=== PATIENT | male | born 1940 | race Caucasian/White ===

== ENCOUNTER 2019-07-19 11:22 | Outpatient (CLI) | payer BC, SELFPAY ==
[2019-07-19 11:38] LABS: Basophils Absolute Auto 0.1 K/mm3 (0.0-0.1); Eosinophils Absolute Auto 0.4 K/mm3 (0-0.3); Eosinophils Percent Auto 5.4 % (0-4.4); Hematocrit 37.8 % (42.0-52.0); Hemoglobin 12.4 g/dL (14.0-18.0); Immature Granulocyte Absolute 0.01 K/mm3 (0.00-0.031); Immature Granulocyte Percent A 0.1 % (0-0.5); Lymphocytes Absolute Auto 1.96 K/mm3 (0.9-3.2); Lymphocytes Percent Auto 27.9 % (18.3-44.2); Mean Corpuscular HGB Conc 32.8 g/dl (32-36); Mean Corpuscular Volume 94.5 fl (80-100); Mean Platelet Volume 8.8 fl (7.4-10.4); Monocytes Absolute Auto 0.9 K/mm3 (0.1-0.6); Monocytes Percent Auto 12.1 % (2.6-8.5); Neutrophils Absolute Auto 3.8 K/mm3 (1.3-6.7); Neutrophils Percent Auto 53.5 % (45.5-73.1); Platelet Count Result 217 k/mm3 (150-375); Red Cell Distribution Width 13.2 % (11.5-14.5)
[2019-07-19 11:50] LABS: Alanine Aminotransferase 20 U/L (4-50); Alkaline Phosphatase 70 U/L (38-126); Aspartate Amino Transferase 34 U/L (17-59); Bilirubin,Total 0.7 mg/dL (0.2-1.3); Blood Urea Nitrogen 17 mg/dL (9-20); Calcium 9.5 mg/dL (8.4-10.2); Carbon Dioxide 30 mmol/L (22-30); Chloride 102 mmol/L (98-107); Cholesterol 141 mg/dL (0-200); Estimated Glomerular Filt Rate > 60; Glucose 103 mg/dL (75-110); HDL Direct 65 mg/dL; Sodium 136 mmol/L (137-145); Triglycerides 96 mg/dL (<150)
[2019-07-19 12:01] LABS: LDL Cholesterol Direct 65 mg/dL
== END 2019-07-19 11:23 | disposition home or self-care (01) ==
PROVIDERS: PCP Internal Medicine; Visit Provider Internal Medicine
DX: Z13.228 Encounter for screening for other metabolic disorders (principal); Z13.220 Encounter for screening for lipoid disorders
CPT/HCPCS: 36415; 80053; 80061; 85025

== ENCOUNTER 2020-07-25 09:45 | Outpatient (CLI) | payer BC, SELFPAY | END 2020-07-25 09:46 | disposition home or self-care (01) | LOC: ANHCOVIDVC 09:45 | PROVIDERS: PCP Internal Medicine | DX: Z23 Encounter for immunization (principal) | CPT/HCPCS: 0001A; 91300 ==

== ENCOUNTER 2020-08-15 09:44 | Outpatient (CLI) | payer BC, SELFPAY | END 2020-08-15 09:45 | disposition home or self-care (01) | LOC: ANHCOVIDVC 09:44 | PROVIDERS: PCP Internal Medicine | DX: Z23 Encounter for immunization (principal) | CPT/HCPCS: 0002A; 91300 ==

== ENCOUNTER 2021-03-26 14:08 | Observation (INO) | payer BC, SELFPAY ==
[2021-03-26] VITALS (10 sets, daily range): BP systolic 122–148; BP diastolic 72–94; PULSE 84–104; RESP 18–20; TEMP 36–36.9; O2SAT 96–97; BMI 29.2
--- NOTE | ~2021-03-26 | CT_ITS ---
EXAMINATION: CT brain wo con DATE: 03/26/2021 15:25 INDICATION: Left lower extremity weakness. TECHNIQUE: Computed tomography (CT) of the head was performed without intravenous contrast. The dose- length product was 605.33 mGy-cm. COMPARISON: None FINDINGS: No acute intracranial hemorrhage, infarction, mass or mass effect. Mild generalized atrophy . There are scattered mild periventricular and subcortical white matter changes, most likely related to small vessel ischemic disease (microangiopathy). There is mucosal thickening of the maxillary and ethmoid sinuses with mucoperiosteal reaction, consistent with chronic sinus disease. IMPRESSION: 1. No acute intracranial abnormality. 2: Chronic sinus disease. 3: Chronic age-related findings. Reviewed, dictated and finalized at location A. EXPERT
--- NOTE | ~2021-03-26 | MR_ITS ---
EXAMINATION: MR cervical spine wo/w con EXAM DATE: 03/27/2021 14:58 INDICATION: Seen by Dr. Quintero, Babinski sign is positive. TECHNIQUE: Multi-sequential, multiplanar MR images of the cervical spine were obtained without contra st. Axial T2, axial T2 MERGE sequence. Sagittal T1, T2, T2 fat saturation images also obtained. Axi al T1 weighted sequence. Patient was then injected with 17 mL Multihance intravenous contrast and re imaged. Postcontrast axial and sagittal T1-weighted fat saturation sequences were obtained. Compari son is made to prior examination from 07/21/2017. FINDINGS: There is 3 mm anterolisthesis C4 on C5, disc bulge and posterior ligamentum flavum hypertr ophy contributing to mild to moderate central canal stenosis, central canal narrowed to about 6 mm, a nd distorting the spinal cord. Slightly increased T2 signal intensity is again present, however there may be slight expansion of the cord posterior to C4 which could indicate some component of edema in addition to chronic myelomalacia. There is 2 mm anterolisthesis C5 on C6, C6 on C7, 3 mm anterolisthesis C7 on T1 and 2 mm anterolisthe sis of T1 on T2. Cervicomedullary junction is normal in appearance. Moderate to severe cervical disc disease. There are no areas of abnormal enhancement on the post contrast images. Level by level evaluation: C2-C3: There is a mild diffuse disc bulge. Uncovertebral joint arthropathy: Mild left. Facet joint arthropathy: Moderate to severe bilateral. Neural foraminal stenosis: Mild to moderate left. Central canal stenosis: No stenosis. C3-C4: There is mild disc osteophyte complex asymmetric to the left Uncovertebral joint arthropathy: Moderate left, mild right. Facet joint arthropathy: Severe bilateral. Neural foraminal stenosis: Severe left, moderate right. Central canal stenosis: Mild. C4-C5: There is a mild diffuse disc bulge. Uncovertebral joint arthropathy: Moderate left, mild to moderate right. Facet joint arthropathy: Severe bilateral . Ligamentum flavum enlargement . Neural foraminal stenosis: Severe left, moderate right. Central canal stenosis: Mild mild to moderate . Central canal measures 6 mm in mid sagittal AP diameter . C5-C6: There is a mild diffuse disc bulge. Uncovertebral joint arthropathy: Moderate bilateral. Facet joint arthropathy: Severe right, moderate to severe left. Neural foraminal stenosis: Mild to moderate right, mild left. Central canal stenosis: No stenosis. C6-C7: Disc does not extend beyond the endplate margin. Uncovertebral joint arthropathy: Moderate bilateral. Facet joint arthropathy: Moderate bilateral. Neural foraminal stenosis: No stenosis. Central canal stenosis: No stenosis. C7-T1: There is a mild diffuse disc bulge. Uncovertebral joint arthropathy: Moderate bilateral. Facet joint arthropathy: Moderate to severe bilateral. Neural foraminal stenosis: Moderate bilateral. Central canal stenosis: Mild. Compared to 2018, slight progression in the advanced cervical spondylosis detailed above. Additionall y, the spinal cord appears slightly expanded at the C4 level which could indicate some edema, potenti ally treatable with steroids. IMPRESSION: 1. Advanced cervical spondylosis with mild interval progression. 2. Cord compression on C4-5, amount of compression appears unchanged but slight expansion could obi cathy some edema not present on prior study. Consider surgical consult an/or steroid trial. Reviewed, dictated and finalized at location A. RAL OFFICE TROUBLE SHOOTER IMPRESSION: 1. Advanced cervical spondylosis with mild interval progression. 2. Cord compression on C4-5, amount of compression appears unchanged but sligh t expansion could indicate
--- NOTE | ~2021-03-26 | XR_ITS ---
EXAMINATION: XR chest 1V portable EXAM DATE: 03/26/2021 18:58 INDICATION: Weakness. Fell last night. TECHNIQUE: Portable AP frontal chest x-ray was obtained. There is no prior study for comparison. FINDINGS: The lungs are clear. There are no pleural effusions. Cardiac silhouette is prominent but magnified on this AP technique. There is no pneumothorax suspected. The bones and soft tissues are unremarkable. IMPRESSION: No acute cardiopulmonary findings. Reviewed, dictated and finalized at location A. INE LACER
--- NOTE | ~2021-03-26 | US_ITS ---
EXAMINATION: US carotid duplex BI DATE: 03/27/2021 13:35 INDICATION: Generalized weakness, difficulty walking TECHNIQUE: Grayscale, color Doppler, and pulsed Doppler images of the cervical carotid arteries were obtained. The degree of vessel stenosis is placed in one of the following categories: normal, <50%, 5 0-69%, >=70% but less than near-occlusion, near-occlusion, or total occlusion. Note that percent sten osis relative to normal distal artery lumen diameter is indirectly measured from velocity measurement s as described by Lenin, et al. Radiology 2003; 229:340-346. COMPARISON: None. FINDINGS: RIGHT: The right common carotid artery (CCA) peak systolic velocity (PSV) is 51.7 cm/s. The right internal c arotid artery (ICA) PSV is 50.3 cm/s. The right ICA end-diastolic velocity (EDV) is 19.0 cm/s. The ri t ICA/CCA PSV ratio is 1.0. Grayscale and color Doppler images yield an estimate of less than 50% d iameter reduction from plaque in the ICA. The external carotid artery (ECA) PSV is 66.0 cm/s. There i s antegrade flow in the right vertebral artery. LEFT: The left CCA PSV is 60.7 cm/s. The left ICA PSV is 45.1 cm/s. The left ICA EDV is 17.7 cm/s. The left ICA/CCA PSV ratio is 0.7. Grayscale and color Doppler images yield an estimate of less than 50% diam eter reduction from plaque in the ICA. The ECA PSV is 55.5 cm/s. There is antegrade flow in the left vertebral artery. IMPRESSION: 1. <50% stenosis in the right internal carotid artery. 2. <50% stenosis in the left internal carotid artery. Reviewed, dictated and finalized at location B. [employer]EARCH [employer] DEVELOPMENT
--- NOTE | ~2021-03-26 | XR_ITS ---
EXAMINATION: XR wrist RT min 3V EXAM DATE: 03/26/2021 17:28 INDICATION: Fall Last Night Arthritis In Wrists, Pain More Lateral Sides . TECHNIQUE: Right wrist frontal, frontal with ulnar deviation, oblique and lateral projections obtain ed and reviewed. There is no prior study for comparison. FINDINGS: Similar appearance to the contralateral side with severe scaphoid settling into the radius, advanced osteoarthritis. Osteopenia limiting sensitivity but no acute fracture identified. Chondroca lcinosis. IMPRESSION: Chronic right wrist findings Reviewed, dictated and finalized at location A. CONTROL CLERK
--- NOTE | ~2021-03-26 | US_ITS ---
EXAMINATION:US venous doppler LE BI INDICATION:Lymphedema TECHNIQUE: Multiple grayscale, color flow and Doppler images of the right and left lower extremity de ep venous systems were obtained and reviewed. COMPARISON:No prior studies for comparison. FINDINGS: The common femoral, superficial femoral and popliteal veins demonstrate normal respiratory variation, augmentation and compressibility. Color flow is also seen within the posterior tibial, pe roneal, greater saphenous and profunda veins. IMPRESSION: 1: No lower extremity deep venous thrombosis. Reviewed, dictated and finalized at location A.
--- NOTE | ~2021-03-26 | XR_ITS ---
EXAMINATION: XR wrist LT min 3V EXAM DATE: 03/26/2021 17:26 INDICATION: Fall Last Night Arthritis In Both Wrists, Left Is Worse TECHNIQUE: Left wrist frontal, frontal with ulnar deviation, oblique and lateral projections obtained and reviewed. There is no prior study for comparison. FINDINGS: Bones are osteopenic. Please note that osteopenia limits sensitivity for detecting fractur es by radiographs. There are no left wrist acute fractures identified. There are severe radiocarpal osteoarthritis with scaphoid settled into the distal aspect of the radius. There is chondral cartilag e calcification. Severe 1st carpometacarpal joint osteoarthritis. IMPRESSION: 1. Osteopenia limiting sensitivity but no acute left wrist fracture identified. 2. Advanced osteoarthritis. 3. Chondrocalcinosis. Reviewed, dictated and finalized at location A. TUBE WINDER IMPRESSION: 1. Osteopenia limiting sensitivity but no acute left wrist fracture identified . 2. Advanced osteoarthritis. 3. Chondrocalcinosis.
--- NOTE | ~2021-03-26 | MR_ITS ---
EXAMINATION: MR brain/brain stem wo/w con DATE: 03/27/2021 13:00 INDICATION: Ataxia. Leg weakness. TECHNIQUE: Magnetic resonance imaging (MRI) of the brain and brainstem was performed without and with 17 mL MultiHance intravenous contrast. Sequences included sagittal and axial T1-weighted FSE, axial diffusion-weighted FS EPI, axial T2*-weighted GRE, axial T2-weighted FLAIR Propeller, and axial T2-we ighted Propeller. Postcontrast sequences included axial and coronal T1-weighted FSE. Apparent diffusi on coefficient (ADC) maps were created. COMPARISON: Cervical spine MRI 07/21/2017 FINDINGS: There are scattered areas of nonspecific increased T2-weighted signal intensity in the cere bral white matter, which is within normal limits for the patient's age. There is no intracranial hemo rrhage, acute infarction, or abnormal intracranial mass lesion. The ventricles are normal in size. Th e mastoid air cells are normal. There are likely changes of ocular lens replacement surgeries. There is severe cervical spondylosis. IMPRESSION: 1. Normal aging brain. Reviewed, dictated and finalized at location A. UNTS RECEIVABLE EXECUTIVE IMPRESSION: 1. Normal aging brain.
--- NOTE | ~2021-03-26 | MR_ITS ---
EXAMINATION: MR thoracic spine wo/w con EXAM DATE: 03/27/2021 14:59 INDICATION: Seen by Dr. Quintero, positive babinski sign. TECHNIQUE: Multi-sequential, multiplanar MR images of the thoracic spine were obtained without contra st. Sagittal T1, T2, T2 fat saturation, axial T2 weighted images reviewed. Axial T1 weighted sequenc e. Patient was then injected with 17 mL Multihance intravenous contrast and reimaged. Postcontrast axial and sagittal T1-weighted fat saturation sequences were obtained. There are no prior studies for comparison. FINDINGS: There is severe spondylosis from T10 through L2. The T11-L1 vertebral bodies are fused. The re is large hemangioma within the T11 vertebral body. Moderate disc disease at T1-2 and T9-10, mild a t the other thoracic levels. There is 2 mm anterolisthesis of T10 on T11, 3 mm anterolisthesis T11 on T12, 3 mm retrolisthesis L1 on L2 with advanced disc disease at that level. There is moderate thorac olumbar dextroscoliosis appears to be centered at the T12-L1 level. Thoracic cord signal is normal, a lthough cord is being distorted, has flattened appearance without significant central canal stenosis at C7-T1 and T1-2 levels. The thoracic central canal is narrowed at the lower thoracic levels with m ass effect on the cord, will be described below. There is overall moderate upper thoracic, mild mid t horacic, severe lower thoracic facet arthropathy. There is thoracic aortic tortuosity and ectasia up to 3.8 cm just beyond the aortic arch. There are no areas of abnormal enhancement on the post contra st images. T9-10: There is a mild to moderate diffuse disc bulge. Facet arthropathy: Severe. Neural foraminal stenosis: Moderate right, mild to moderate left. Central canal stenosis: Mild. T10-11: There is a moderate diffuse disc bulge. Facet arthropathy: Severe . Ligamentum flavum enlargement. Neural foraminal stenosis: Moderate to severe right, moderate left. Central canal stenosis: Moderate . Central canal measures 5-6 mm in mid sagittal AP diameter. Spinal cord being flattened but no cord signal change to suggest acute edema. T11-T12: There is a moderate diffuse disc bulge. Facet arthropathy: Severe. Neural foraminal stenosis: Mild bilateral. Central canal stenosis: Mild to moderate. Mild cord distortion, less than flattening at level above. T12-L1: This level is fused. Facet arthropathy: Fused. Neural foraminal stenosis: Mild bilateral. Central canal stenosis: Mild. Spinal cord is in the left side of the spinal canal, from the scoliosis. IMPRESSION: 1. Advanced lower lumbar spondylosis, moderate thoracolumbar dextroscoliosis with some chronic appear ing cord compression at T10-11. No acute findings. 2. Thoracic aortic tortuosity, ectasia up to 3.8 cm. Reviewed, dictated and finalized at location A. ER OFF IMPRESSION: 1. Advanced lower lumbar spondylosis, moderate thoracolumbar dextroscoliosis wi th some chronic appearing cord compression at T10-11. No acute findings. 2. Thoracic aortic tortuosity, ectasia up to 3.8 cm.
--- NOTE | 2021-03-26 14:15 | ECG_ITS ---
Measurements Intervals [place] Rate: 110 P: 34 AK: 193 QRS: -17 QRSD: 101 T: 4 QT: 319 QTc: 432 Interpretive Statements SINUS TACHYCARDIA ATRIAL COUPLET AND FREQUENT VENTRICULAR PREMATURE COMPLEXES BORDERLINE T WAVE ABNORMALITY- INFERIOR LEADS BASELINE ARTIFACT- I, II, AVR, AVL ABNORMAL ECG Electronically Signed On 03-27-2021 19:24:52 RETAIL DEPARTMENT RESET by Elian Shah D.O.
[2021-03-26 15:54] LABS: Basophils Absolute Auto 0.1 K/mm3 (0.0-0.1); Basophils Percent Auto 1.2 % (0.2-1.2); Eosinophils Absolute Auto 0.2 K/mm3 (0-0.3); Eosinophils Percent Auto 3.2 % (0-4.4); Hematocrit 39.7 % (42.0-52.0); Hemoglobin 13.5 g/dL (14.0-18.0); Immature Granulocyte Absolute 0.03 K/mm3 (0.00-0.031); Immature Granulocyte Percent A 0.4 % (0-0.5); Lymphocytes Absolute Auto 1.73 K/mm3 (0.9-3.2); Lymphocytes Percent Auto 25.1 % (18.3-44.2); Mean Corpuscular Volume 94.1 fl (80-100); Mean Platelet Volume 8.7 fl (7.4-10.4); Monocytes Absolute Auto 0.8 K/mm3 (0.1-0.6); Monocytes Percent Auto 11.8 % (2.6-8.5); Neutrophils Percent Auto 58.3 % (45.5-73.1); Platelet Count Result 235 k/mm3 (150-375); Red Blood Count 4.22 M/mm3 (4.6-6.20); Red Cell Distribution Width 13.2 % (11.5-14.5); White Blood Count 6.9 K/mm3 (4.5-10.0)
--- NOTE | 2021-03-26 15:55 | ED.WEAKNESS ---
HPI - Weakness General Chief complaint: Weakness Stated complaint: leg weakness Time Seen by Provider: 03/26/21 14:45 Source: patient and family Limitations: no limitations History of Present Illness HPI Narrative: 80-year-old male Here for 1 day history of new lower extremity weakness, left greater than right Patient states that he noticed some difficulty walking and feeling like his legs were collapsing from beneath him starting yesterday morning He fell once, jamming both of his wrists, but reports no other injuries and did not strike his head There is no speech difficulty, no dizziness, no reported facial asymmetry, no upper extremity weakness He does not feel he has been ill No headache, does not have a cough shortness of breath fever, no nausea or diarrhea, no urinary symptoms Related Data Home Medications Medication Instructions Recorded Confirmed Lactobacills gasseri-Bifidobac cap PO DAILY cap 07/26/19 bifidum,longum 1.5 billion cell capsule aspirin 81 mg chewable tablet 81 mg PO DAILY 07/26/19 calcium carbonate 600 mg (1,500 cap PO DAILY cap 07/26/19 mg)-vitamin D3 500 unit capsule fexofenadine 180 mg tablet 180 mg PO DAILY 07/26/19 fluticasone propionate 50 2 spray NASAL DAILY 07/26/19 mcg/actuation nasal spray,suspension multivitamin 1 tablet PO DAILY 07/26/19 saw palmetto 160 mg capsule 160 mg PO BID 07/26/19 selenium 200 mcg capsule 200 mcg PO DAILY 07/26/19 Allergies Allergy/AdvReac Type Severity Reaction Status Date / Time Horse Serum Proteins Allergy Unknown Hives Uncoded 03/26/21 14:36 Review of Systems Review of Systems: All systems reviewed & are unremarkable except as noted in HPI and below Constitutional: Constitutional: Reports no additional constitutional complaints, Denies chills, Reports fatigue, Denies fever(s), Denies headache(s) and Reports weakness Eyes: Eyes: Reports no additional eye complaints and Denies change in vision ENT: Denies headache(s) and Denies sore throat Cardiovascular: Cardiovascular: Denies chest pain and Denies dyspnea Respiratory: Respiratory: Denies cough and Denies dyspnea Gastrointestinal: Gastrointestinal: Denies abdominal pain, Denies diarrhea and Denies vomiting Genitourinary: Genitourinary: Denies dysuria and Denies urinary frequency Musculoskeletal: Musculoskeletal: Denies back pain, Denies deformity, Reports arthralgias, Reports joint swelling and Denies numbness Integumentary/Breasts: Skin/Breast: Denies rash and Denies wounds Neurologic: Denies headache(s), Reports focal weakness, Denies numbness and Reports weakness Psychiatric: Psychiatric: Reports no additional psychiatric complaints Endocrine: Endocrine: Reports no additional endocrine complaints Hematologic/Lymphatic: Hematologic/Lymphatic: Reports no additional hematologic/lymphatic complaints Allergic/Immunologic: Allergic/Immunologic: Reports no additional allergic/immunologic complaints PMFSH Past Medical History Medical History Allergies Anemia Chicken pox Diverticulosis Heartburn History of GI bleed Measles Mumps Osteoarthritis Surgical History Surgical History History of hernia repair 1989 History of right knee joint replacement History of skin surgery basal cell carcinoma removal of left ear Family History Family History Father Myocardial infarction Mother Colon perforation Social History Social History Smoking status: Never smoker Alcohol intake: current Alcohol use details: rarely Exam Const: General: cooperative, no acute distress and alert Orientation/consciousness: patient oriented x3 (alert) Other: Frail, elderly HENMT: Head: normal to inspection, normocephalic, atraumatic, no contusions, no hematoma
[2021-03-26 16:03] LABS: Add Urine Microscopic? NO; Appearance Urine Clear (Clear); Bilirubin Urine Negative (Negative); Blood Urine Negative (Negative); Color Urine Yellow (Yellow); Glucose Urine UA Negative (Negative); Ketones Urine Negative (Negative); Leukocyte Esterase Ur Negative LEU/UL (Negative); Nitrate Urine Negative (Negative); Protein Urine Negative (Negative); Specific Grav Ur 1.013 (1.001-1.035); Urobilinogen Urine Negative mg/dL (<2.0)
[2021-03-26 16:12] LABS: Alanine Aminotransferase 17 U/L (4-50); Albumin Level 4.4 g/dL (3.5-5.1); Alkaline Phosphatase 77 U/L (38-126); Anion Gap 7 mmol/L (8-16); Aspartate Amino Transferase 36 U/L (17-59); Bilirubin,Total 0.6 mg/dL (0.2-1.3); Blood Urea Nitrogen 20 mg/dL (9-20); Calcium 9.8 mg/dL (8.4-10.2); Carbon Dioxide 27 mmol/L (22-30); Chloride 99 mmol/L (98-107); Estimated CRCL calculation 67 ml/min; Estimated Glomerular Filt Rate > 60; Glucose 106 mg/dL (65-110); Potassium 4.3 mmol/L (3.4-5.0); Sodium 133 mmol/L (137-145)
[2021-03-26 17:15] LABS: NT Pro B Type Natriuretic Pept 123 pg/mL (5-100); Troponin I < 0.012 ng/mL (0.000-0.034)
--- NOTE | 2021-03-26 20:46 | ADMGEN ---
This patient, Gold Allen, was admitted to Medical Room 241-. Patient/family oriented to hospital policies and general routines including ID bracelet, bed and alarms, visiting hours, pain management, procedures, bathroom and other care routines, personal items, smoking policy, room service/diet, and visiting hours. Information on how to activate the Rapid Response Team has been discussed. Patient/Family are encouraged to report perceived risks to care and to ask questions if they do not understand what they are told or what they should do.
--- NOTE | 2021-03-26 21:10 | PM.IMHP ---
H&P: HPI History of Present Illness Date/Time: 03/26/21 21:10 this is a 80-year-old male patient has chronic lymphedema. The patient chronically wears support hose and goes to a lymphedema clinic. The patient has become extremely weak today. He noted that the left side was greater than the right. The patient has not had any previous stroke. Patient was having difficulty walking. The patient stated that his legs were collapsing from beneath him today. He did fall once it he injured both of his wrist but did not strike his head. he has not had any difficulty speaking or moving his upper extremities. He did notice the both his wrist were swollen. The patient denied having any fever chills. The patient stated that he recently had the flu shot and his COVID booster within the last couple weeks. He stated immediately he was not feeling ill but now feels weak. Patient denies any nausea vomiting or diarrhea. No fever chills. He has no headache or cough. No urinary symptoms. The patient is not on any diuretics. The patient stated that he is chronicly low on his sodium. Patient's sodium was 133 today patient's baseline sodium is somewhere between 134 and 136. However it has been than the 1 teens before. The patient was started on IV fluids and given Dilaudid 1st discomfort. Patient's chest x-ray was read as no acute cardio pulmonary findings. Right Wrist x-ray was read as chronic right wrist findings. Left wrist x-ray osteopenia limiting sensitivity but no acute left wrist fracture identified. I advanced a CO arthritis. Chondrocalcinosis. His CT was read as no acute intracranial abnormality. Chronic sinus disease. Chronic age-related findings. PT and OT evaluation have been ordered for the patient. The patient stated that he could not go home because he was unable walk. Patient is lifting his legs up in the bed without difficulty. However he stated he is too weak to walk. His H&H is 13.5 and 39.7. Which is his baseline. Urinalysis is negative. The patient is being admitted to observation status on the date of service of 03/26/2021. Chief Complaint: Difficulty ambulating with weakness Review of Systems Review of Systems: All systems reviewed & are unremarkable except as noted in HPI and below Constitutional: Constitutional: Reports as per HPI and Reports no additional constitutional complaints Eyes: Eyes: Reports as per HPI and Reports no additional eye complaints ENT: Reports system reviewed and no additional complaints, except as documented and Reports Normal hearing present Cardiovascular: Cardiovascular: Reports no additional cardiovascular complaints Respiratory: Respiratory: Reports no additional respiratory complaints and Reports no additional respiratory complaints Gastrointestinal: Gastrointestinal: Reports as per HPI and Reports no additional gastrointestinal complaints Musculoskeletal: Musculoskeletal: Reports no additional musculoskeletal complaints Integumentary/Breasts: Skin/Breast: Reports system reviewed and no additional complaints, except as docu and Reports as per HPI Neurologic: Reports system reviewed and no additional complaints, except as documented, Reports as per HPI and Reports Normal hearing present Psychiatric: Psychiatric: Reports no additional psychiatric complaints and Reports as per HPI Endocrine: Endocrine: Reports no additional endocrine complaints Hematologic/Lymphatic: Hematologic/Lymphatic: Reports no additional hematologic/lymphatic complaints Allergic/Immunologic: Allergic/Immunologic: Reports no additional allergic/immunologic complaints PMFSH Past Medical History Medical History (Updated 03/26/21 @ 21:37 by Keisha Giles NP) Allergies Anemia Chicken pox Chronic acquired lymphedema Diverticulosis Heartburn History of GI bleed Measles Mumps Osteoarthritis Surgical History Surgical History History of hernia repair
[2021-03-26 22:14] LABS: Anion Gap 9 mmol/L (8-16); Blood Urea Nitrogen 18 mg/dL (9-20); Calcium 9.4 mg/dL (8.4-10.2); Carbon Dioxide 27 mmol/L (22-30); Chloride 97 mmol/L (98-107); Estimated CRCL calculation 67 ml/min; Estimated Glomerular Filt Rate > 60; Glucose 102 mg/dL (65-110); Magnesium 1.7 mg/dL (1.6-2.3); Potassium 3.8 mmol/L (3.4-5.0); Sodium 133 mmol/L (137-145)
[2021-03-26] MEDS: SODIUM CHLORIDE 0.9% IV 1,000 ML 75 ML IV CONT (22:18)
[2021-03-27] VITALS (10 sets, daily range): BP systolic 137–150; BP diastolic 82–90; PULSE 70–99; RESP 16–20; TEMP 36–36.8; O2SAT 96–99
--- NOTE | 2021-03-27 | ECHO_ITS ---
Patient Info Name: Gold Allen Age: 80 years : 1940 Gender: Male Ht: 70 in Wt: 180 lbs BSA: 2.02 m2 HR: 88 bpm BP: 147 / 85 mmHg Heart Rhythm: Sinus Rhythm Technical Quality: Fair Exam Date: 03/27/2021 3:47 PM Exam Location: [facility] Pulmonary Exam Room: 241 Patient Status: Inpatient Admit Date: 03/26/2021 Staff Ordering Physician: Keisha Giles NP Carrier Driver: Chio Ramos RDCS Attending Provider: Elsy Shannon MD Referring Physician: Tisha CHOU; Exam Type: CA echo doppler color flow Study Info Indications - COREY /WEAKNESS Complete two-dimensional, color flow and Doppler transthoracic echocardiogram is performed. Summary 1. Complete two-dimensional, color flow and Doppler transthoracic echocardiogram is performed. 2. Normal left ventricular size and thickness. Left ventricular overall systolic function is lower end of normal with mild hypokinesis of the distal septum and apex. Visual estimate of ejection fraction is 45-50% and was measured at 45%. Grade 2 diastolic dysfunction is present. 3. Left atrial chamber dimension is moderately enlarged. 4. There is mild mitral valve regurgitation. 5. No pulmonary hypertension, estimated pulmonary arterial systolic pressure is 33 mmHg. 6. Normal sinus rhythm with PVCs. 7. Somewhat technically difficult study; few short axis views to evaluate. Left Ventricle Left ventricular chamber dimension is normal. Left ventricular systolic function is mildly reduced, estimated at 45-50%. There is no increased left ventricular wall thickness. Left ventricular septal wall motion is normal. The left ventricular diastolic function is normal. Right Ventricle Right ventricular chamber dimension is normal. Right ventricular systolic function is normal. Left Atria Left atrial chamber dimension is moderately enlarged. Right Atria Right atrial chamber dimension is normal. Aortic Valve The aortic valve is trileaflet. There is no aortic valve sclerosis. There is no aortic valve stenosis. There is trace aortic valve regurgitation. Pulmonic Valve The pulmonic valve is normal. There is no pulmonic valve stenosis. There is no pulmonic regurgitation. Mitral Valve The mitral valve has normal leaflets. There is no mitral valve stenosis. There is mild mitral valve regurgitation. Tricuspid Valve The tricuspid valve leaflets are normal. There is no significant tricuspid valve stenosis. There is trace tricuspid valve regurgitation. No pulmonary hypertension, estimated pulmonary arterial systolic pressure is 33 mmHg. Pericardium/Pleural The pericardium appears normal. There is no pericardial effusion. Inferior Vena Cava Normal inferior vena cava with >50% collapse upon inspiration consistent with Empty right atrial pressure, 10 mmHg. Aorta The aortic root size at the sinus of Valsalva is normal. The prox ascending aorta size is normal. Left Ventricular Outflow Tract Name Value Normal LVOT 2D LVOT Diameter 2.1 cm LVOT Doppler LVOT Peak Gradient 5 mmHg LVOT Mean Gradient
[2021-03-27 06:07] LABS: Alanine Aminotransferase 15 U/L (4-50); Albumin Level 3.9 g/dL (3.5-5.1); Alkaline Phosphatase 67 U/L (38-126); Anion Gap 6 mmol/L (8-16); Aspartate Amino Transferase 31 U/L (17-59); Bilirubin,Total 0.5 mg/dL (0.2-1.3); Blood Urea Nitrogen 18 mg/dL (9-20); Carbon Dioxide 27 mmol/L (22-30); Chloride 102 mmol/L (98-107); Estimated CRCL calculation 67 ml/min; Estimated Glomerular Filt Rate > 60; Glucose 93 mg/dL (65-110); Lactate Dehydrogenase 370 U/L (313-618); Magnesium 1.8 mg/dL (1.6-2.3); Potassium 4.1 mmol/L (3.4-5.0); Sodium 135 mmol/L (137-145)
[2021-03-27 06:08] LABS: Lactic Acid Reflex 0.8 mmol/L (0.7-2.1)
[2021-03-27 06:31] LABS: Basophils Absolute Auto 0.1 K/mm3 (0.0-0.1); Basophils Percent Auto 1.1 % (0.2-1.2); Eosinophils Absolute Auto 0.5 K/mm3 (0-0.3); Hematocrit 36.3 % (42.0-52.0); Hemoglobin 12.1 g/dL (14.0-18.0); Immature Granulocyte Absolute 0.01 K/mm3 (0.00-0.031); Immature Granulocyte Percent A 0.2 % (0-0.5); Lymphocytes Absolute Auto 2.02 K/mm3 (0.9-3.2); Lymphocytes Percent Auto 31.9 % (18.3-44.2); Mean Corpuscular HGB Conc 33.3 g/dl (32-36); Mean Corpuscular Hemoglobin 31.7 pg (26-34); Mean Platelet Volume 9.2 fl (7.4-10.4); Monocytes Absolute Auto 0.8 K/mm3 (0.1-0.6); Monocytes Percent Auto 12.6 % (2.6-8.5); Neutrophils Absolute Auto 2.9 K/mm3 (1.3-6.7); Neutrophils Percent Auto 46.2 % (45.5-73.1); Platelet Count Result 200 k/mm3 (150-375); Red Blood Count 3.82 M/mm3 (4.6-6.20); Red Cell Distribution Width 13.4 % (11.5-14.5); White Blood Count 6.3 K/mm3 (4.5-10.0)
--- NOTE | 2021-03-27 08:51 | PC.NURSE ---
Spoke with Dr. Cage about patient's frequent PVCs. Dr. Cage will come see patient and decide if further interventions are needed.
--- NOTE | 2021-03-27 12:59 | WPDNEURCNPN ---
Assessment and Plan Additional Plan considering the paraparesis and upgoing plantar responses we have to obtain the cervical and thoracic MRI to rule out the possibility of myelopathy or spinal cord lesion internal or external and further adjustment according Consult date: 03/27/21 HPI: Gold Allen is a 80 year old male Has been admitted to [facility] for the complaints of extreme weakness left side greater than the right with resultant difficulties in walking and with the statement that his legs were collapsing from beneath him on the day of admission he did injured both of his wrists but did not strike his head he had no difficulties in speaking or moving his upper extremities he does carry the diagnosis of 1. Chronic lymphedema and 2. History of recent flu shot and COVID booster 3. 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 The patient has 2 children. The patient is a lifelong nonsmoker does not use any alcohol marijuana or illicit drugs. 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 The patient is retired Code status full code Smoking status: Never smoker Alcohol intake: current Alcohol use details: rarely Substance use: never Spiritual care concerns: No Meds Home Medications and Allergies Home Medications Medication Instructions Recorded Confirmed Type fluocinonide 0.05 % topical cream 1 applic TOPICAL BID #15 gm 05/04/19 03/27/21 Rx Lactobacills gasseri-Bifidobac 1 cap PO DAILY cap 07/26/19 03/27/21 History bifidum,longum 1.5 billion cell capsule aspirin 81 mg chewable tablet 81 mg PO DAILY 07/26/19 03/27/21 History calcium carbonate 600 mg (1,500 1 cap PO DAILY cap 07/26/19 03/27/21 History mg)-vitamin D3 500 unit capsule fexofenadine 180 mg tablet 180 mg PO DAILY 07/26/19 03/27/21 History fluticasone propionate 50 2 spray NASAL DAILY 07/26/19 03/27/21 History mcg/actuation nasal spray,suspension multivitamin 1 tablet PO DAILY 07/26/19 03/27/21 History saw palmetto 160 mg capsule 160 mg PO BID 07/26/19 03/27/21 History selenium 200 mcg capsule 200 mcg PO DAILY 07/26/19 03/27/21 History azelastine 137 mcg (0.1 %) nasal 137 mcg NASAL Q12H #30 ml 11/14/20 03/27/21 Rx spray aerosol omeprazole 40 mg capsule,delayed 40 mg PO DAILY #90 cap 11/14/20 03/27/21 Rx release Allergies Allergy/AdvReac Type Severity Reaction Status Date / Time Horse Serum Proteins Allergy Unknown Hives Uncoded 03/27/21 00:39 Vital Signs Vital Signs - 24 hr 03/26/21 14:10 03/26/21 15:00 03/26/21 16:00 Temperature 36.0 C L Pulse Rate 104 H 89 88 Respiratory Rate 18 20 20 Blood Pressure 148/94 H 126/72 127/78 Pulse Oximetry 97 97 97 03/26/21 17:00 03/26/21 18:00 03/26/21 19:00 Temperature Pulse Rate 88 89 93 Respiratory Rate 20 20 20 Blood Pressure 128/84 129/89 134/84 Pulse Oximetry 97 97 97 03/26/21 20:00 03/26/21 20:22 03/26/21 21:13 Temperature 36.9 C Pulse Rate 99 97 90 Respiratory Rate 20 20 Blood Pressure 127/84 122/75 Pulse Oximetry 97 97 03/26/21 22:00 03/27/21 00
--- NOTE | 2021-03-27 15:20 | PM.IMPN ---
Progress Note: A&P Assessment and Plan (1) Elevated blood pressure reading: Code(s): R03.0 - Elevated blood-pressure reading, without diagnosis of hypertension Status: Acute Assessment and Plan: P.r.n. hydralazine. 03/27/2021 Patient is 80-year-old male with history of lower extremity limb for edema presented emergency department with a complaint lower extremity weakness CT scan of the head was negative patient was seen by neurologist today patient Babinski sign was positive suggesting further evaluation, after discussion with Neurology will order cervical spine and thoracic spine MRI further evaluate, MRI of cervical spine showed, Cord compression on C4-5, amount of compression appears unchanged but slight expansion could indicate some edema not present on prior study. will communicate with a neurologist and further recommendation to followConsider surgical consult an/or steroid trial.will continue working with physical therapy and further recommendation to follow. (2) Hyponatremia: Code(s): E87.1 - Hypo-osmolality and hyponatremia Status: Acute Assessment and Plan: Check urine osmolarity and urine sodium. The patient is chronically low. I did start him on IV fluids and will recheck his sodium tonight. The again in the morning. He is not on any diuretics. He has not had any nausea vomiting or diarrhea. Check magnesium level as well. (3) Chronic acquired lymphedema: Code(s): I89.0 - Lymphedema, not elsewhere classified Status: Chronic Assessment and Plan: The patient states that he goes the lymphedema clinic. Continue with BELLO salazar. (4) Fall: Code(s): W19.XXXA - Unspecified fall, initial encounter Status: Acute Assessment and Plan: PT OT evaluation greatly be appreciated. (5) Leg weakness: Code(s): R29.898 - Other symptoms and signs involving the musculoskeletal system Status: Acute Assessment and Plan: Have Neurology check out the patient. Will work him up for a possible stroke. Although the patient does not have any focal weakness. He has difficulty ambulating. Neurology consult greatly be appreciated. Will do an MRI of the brain, carotid Dopplers and an echo. Check thyroid level and magnesium as well as B12. H&H is stable. H&H is 13.5 and 39.7. (6) Frequent PVCs: Code(s): I49.3 - Ventricular premature depolarization Status: Acute Assessment and Plan: The patient tells me this is chronic. Will check magnesium. Subjective Date/time seen: 03/27/21 15:20 this is a 80-year-old male patient has chronic lymphedema. The patient chronically wears support hose and goes to a lymphedema clinic. The patient has become extremely weak today. He noted that the left side was greater than the right. The patient has not had any previous stroke. Patient was having difficulty walking. The patient stated that his legs were collapsing from beneath him today. He did fall once it he injured both of his wrist but did not strike his head. he has not had any difficulty speaking or moving his upper extremities. He did notice the both his wrist were swollen. The patient denied having any fever chills. The patient stated that he recently had the flu shot and his COVID booster within the last couple weeks. He stated immediately he was not feeling ill but now feels weak. Patient denies any nausea vomiting or diarrhea. No fever chills. He has no headache or cough. No urinary symptoms. The patient is not on any diuretics. The patient stated that he is chronicly low on his sodium. Patient's sodium was 133 today patient's baseline sodium is somewhere between 134 and 136. However it has been than the 1 teens before. The patient was started on IV fluids and given Dilaudid 1st discomfort. Patient's chest x-ray was read as no acute cardio pulmonary findings. Right Wrist x-ray was read as chronic right wrist findings. Left wrist x-ray os
[2021-03-27] MEDS: predniSONE 20 MG TABLET 40 MG PO (17:28)
[2021-03-27] MEDS: SODIUM CHLORIDE 0.9% IV 1,000 ML 75 ML IV CONT (20:27)
[2021-03-28] VITALS: PULSE 94
[2021-03-28 03:50] VITALS: BP 146/89; PULSE 84; RESP 20; TEMP 36.5; O2SAT 96
[2021-03-28 04:00] VITALS: PULSE 82
[2021-03-28 08:00] VITALS: PULSE 103
[2021-03-28] MEDS: predniSONE 20 MG TABLET 40 MG PO (08:52)
--- NOTE | 2021-03-28 09:31 | PM.DS ---
DS: Admitting Diagnosis Discharge Date 03/28/2021 Admitting Diagnosis Difficulty ambulating with weakness DS: Discharge Diagnosis Discharge Diagnosis (1) Chronic acquired lymphedema: Code(s): I89.0 - Lymphedema, not elsewhere classified Status: Chronic Assessment and Plan: The patient states that he goes the lymphedema clinic. Continue with BELLO salazar. (2) Leg weakness: Code(s): R29.898 - Other symptoms and signs involving the musculoskeletal system Status: Acute Assessment and Plan: Have Neurology check out the patient. Will work him up for a possible stroke. Although the patient does not have any focal weakness. He has difficulty ambulating. Neurology consult greatly be appreciated. Will do an MRI of the brain, carotid Dopplers and an echo. Check thyroid level and magnesium as well as B12. H&H is stable. H&H is 13.5 and 39.7. (3) Elevated blood pressure reading: Code(s): R03.0 - Elevated blood-pressure reading, without diagnosis of hypertension Status: Acute Assessment and Plan: P.r.n. hydralazine. 03/27/2021 Patient is 80-year-old male with history of lower extremity limb for edema presented emergency department with a complaint lower extremity weakness CT scan of the head was negative patient was seen by neurologist today patient Babinski sign was positive suggesting further evaluation, after discussion with Neurology will order cervical spine and thoracic spine MRI further evaluate, MRI of cervical spine showed, Cord compression on C4-5, amount of compression appears unchanged but slight expansion could indicate some edema not present on prior study. will communicate with a neurologist and further recommendation to followConsider surgical consult an/or steroid trial.will continue working with physical therapy and further recommendation to follow. (4) Hyponatremia: Code(s): E87.1 - Hypo-osmolality and hyponatremia Status: Acute Assessment and Plan: Check urine osmolarity and urine sodium. The patient is chronically low. I did start him on IV fluids and will recheck his sodium tonight. The again in the morning. He is not on any diuretics. He has not had any nausea vomiting or diarrhea. Check magnesium level as well. (5) Fall: Code(s): W19.XXXA - Unspecified fall, initial encounter Status: Acute Assessment and Plan: PT OT evaluation greatly be appreciated. (6) Frequent PVCs: Code(s): I49.3 - Ventricular premature depolarization Status: Acute Assessment and Plan: The patient tells me this is chronic. Will check magnesium. DS: Summary Hospital Course Reason for hospitalization: this is a 80-year-old male patient has chronic lymphedema. The patient chronically wears support hose and goes to a lymphedema clinic. The patient has become extremely weak today. He noted that the left side was greater than the right. The patient has not had any previous stroke. Patient was having difficulty walking. The patient stated that his legs were collapsing from beneath him today. He did fall once it he injured both of his wrist but did not strike his head. he has not had any difficulty speaking or moving his upper extremities. He did notice the both his wrist were swollen. The patient denied having any fever chills. The patient stated that he recently had the flu shot and his COVID booster within the last couple weeks. He stated immediately he was not feeling ill but now feels weak. Patient denies any nausea vomiting or diarrhea. No fever chills. He has no headache or cough. No urinary symptoms. The patient is not on any diuretics. The patient stated that he is chronicly low on his sodium. Patient's sodium was 133 today patient's baseline sodium is somewhere between 134 and 136. However it has been than the 1 teens before. The patient was started on IV fluids and given Dilaudid 1st discomfort. Patient's chest x-r
--- NOTE | 2021-03-28 11:10 | WPDNEUROPN ---
Progress Note: A&P Additional Plan patient is being discharged today we will send the report of all the MRIs Elaine at [facility] forthe neurosurgical opinion and appointment Time Spent With Patient Time with patient: less than 15 minutes Subjective Date/time seen: 03/28/21 11:10 initial neurological examination was abnormal with bilateral hyperreflexia of the lower extremities along with the upgoing plantar responses, MRI of the brain was consistent with the normal aging process, MRI of cervical spine revealed mild to moderate central canal stenosis with 6mm in mid sagittal AP diameter and 2mm anterolisthesis C5 on C6-C6 on C7 7 C7 on T1 3mm normal circuit cervicomedullary junction and thoracic spine MRI revealed lower lumbar spondylosis moderate thoracolumbar dextroscoliosis with chronic appearing cord compression at T10 and 11 along with thoracic aortic tortuosity ectasia up to 3.8cm Doppler study of the carotid is normal and so as the venous Doppler study of the lower extremities Review of Systems Review of Systems: All systems reviewed & are unremarkable except as noted in HPI and below Objective Data Vital Signs Vital Signs: Vital Signs - 24 hr 03/27/21 12:00 03/27/21 16:00 03/27/21 19:46 Temperature 36.0 C L Pulse Rate 92 83 85 Respiratory Rate 20 Blood Pressure 140/82 Pulse Oximetry 97 03/27/21 20:00 03/28/21 00:00 03/28/21 03:50 Temperature 36.5 C Pulse Rate 83 94 84 Respiratory Rate 20 Blood Pressure 146/89 H Pulse Oximetry 96 03/28/21 04:00 03/28/21 08:00 Temperature Pulse Rate 82 103 H Respiratory Rate Blood Pressure Pulse Oximetry Intake/Output Intake/Output: Intake & Output 03/25/21 03/26/21 03/27/21 03/28/21 23:59 23:59 23:59 23:59 Intake Total 3290 430 Output Total 800 200 Balance 2490 230 Meds/Results Medications: Active Medications Generic Name Dose Route Start Last Admin Trade Name Freq PRN Reason Stop Dose Admin Hydralazine HCl 10 mg 03/26/21 21:20 Hydralazine Hcl 20 Mg/Ml Vial IV PUSH Q8H PRN Blood Pressure - High Sodium Chloride 1,000 mls @ 75 mls/hr 03/26/21 20:45 03/27/21 20:29 Normal Saline Iv IV CONT Not Given .[id number] [facility] Ondansetron HCl 4 mg 03/26/21 17:47 Ondansetron Inj 4 Mg/2 Ml Vial IV PUSH Q4H PRN Nausea Prednisone 40 mg 03/27/21 15:55 03/28/21 08:52 Prednisone 20 Mg Tablet PO 40 mg DAILY@0800 [facility] Administration Radiology Results: ITS Impressions Head CT 03/26/21 15:28 IMPRESSION: 1. No acute intracranial abnormality. 2: Chronic sinus disease. 3: Chronic age-related findings. Wrist X-Ray 03/26/21 17:37 IMPRESSION: Chronic right wrist findings Chest X-Ray 03/26/21 19:06 IMPRESSION: No acute cardiopulmonary findings. Brain MRI 03/27/21 13:20 IMPRESSION: 1. Normal aging brain. Venous Doppler Study 03/27/21 13:33 IMPRESSION: 1: No lower extremity deep venous thrombosis. Carotid Doppler Study 03/27/21 13:41 IMPRESSION: 1. <50% stenosis in the right internal carotid artery. 2. <50% stenosis in the left internal carotid artery. Cervical Spine MRI 03/27/21 15:07 IMPRESSION: 1. Advanced cervical spondylosis with mild interval progression. 2. Cord compression on C4-5, amount of compression appears unchanged but slight expansion could indicate some edema not present on prior study. Consider surgical consult an/or steroid trial. Thoracic Spine MRI 03/27/21 15:12 IMPRESSION: 1. Advanced lower lumbar spondylosis, moderate thoracolumbar dextroscoliosis with some chronic appearing cord compression at T10-11. No acute findings. 2. Thoracic aortic tortuosity, ectasia up to 3.8 cm. Quality VTE Prophylaxis VTE prophylaxis: mechanical ordered
== END 2021-03-28 11:00 | disposition home or self-care (01) ==
LOC: ANHED 17:47 → ANH2MED 18:41
PROVIDERS: Nurse Practitioner; Admitting Provider Internal Medicine; Emergency Provider Emergency Medicine; PCP Internal Medicine; Visit Provider Family Medicine
DX: I89.0 Lymphedema, not elsewhere classified (principal); R53.1 Weakness; I49.3 Ventricular premature depolarization; M25.532 Pain in left wrist; M25.531 Pain in right wrist; R03.0 Elevated blood-pressure reading, without diagnosis of hypertension; E87.1 Hypo-osmolality and hyponatremia; G81.94 Hemiplegia, unspecified affecting left nondominant side; M47.812 Spondylosis without myelopathy or radiculopathy, cervical region; M47.816 Spondylosis without myelopathy or radiculopathy, lumbar region; M85.88 Other specified disorders of bone density and structure, other site; M79.605 Pain in left leg; M79.604 Pain in right leg; R26.81 Unsteadiness on feet; W19.XXXA Unspecified fall, initial encounter; Z96.651 Presence of right artificial knee joint; Z85.828 Personal history of other malignant neoplasm of skin
CPT/HCPCS: 36415; 70450; 70553; 71045; 72156; 72157; 73110; 80048; 80053; 81003; 82607; 82728; 83605; 83615; 83735; 83880; 83930; 84443; 84484; 85025; 93005; 93306; 93880; 93970; 96360; 96361; 97161; 97165; 99285; A9577; G0378; J1170; J7030; J7512

== ENCOUNTER 2021-05-14 14:00 | Outpatient (RCR) | payer BC, SELFPAY ==
--- NOTE | 2021-04-08 15:47 | PTOPEVAL ---
PHYSICAL THERAPY EVALUATION AND PLAN OF CARE 04-08-21 Thank you for referring Gold Allen to [facility], for the diagnosis of B LE lymphedema and LE weakness/ falls. With the evaluation, the lymphedema of his legs is stabilized and he is wearing appropriate compression knee high garments. The PT treatment plan is to address LE strengthening, gait and balance skills. He is scheduled to be seen for therapy? 2 x/week for 5 weeks. Gold requests that his PT care be switched from the Hospitalist Dr. Cage to his general dr, Dr. Braga. Please review, sign, date and return this plan of care SUDHA. I agree with and certify that the following plan of care is medically necessary. Referring Physician Date Attending Provider: Faith Cage MD, hospitalist at [facility] CC: Dr. Braga, per pt request, his general physician *PT Outpatient Evaluation Document 04/08/21 14:25 LITTLE (Rec: 04/08/21 15:47 LITTLE [id number]) Outpatient Past Medical History Past Medical History Source of Past Medical History Recalled from Previous Visit, Confirmed with Patient/Family Neurological History Hx Neurological Disorders No Significant History Cardiovascular History Hx Cardiac Disorders No Significant History Respiratory History Hx Respiratory Disorders No Significant History Gastrointestinal History Hx Gastrointestinal Disorders No Significant History Genitourinary History Hx Genitourinary Disorders No Significant History Musculoskeletal History Hx Arthritis Yes: hands/ankles- wear orthotics and supportive shoes Hx Joint Replacement Yes: Bilateral knees Hx Other Musculoskeletal Disorders Yes: new dx:cervical cord compression-to see neurosurgeon; Hematological History Hx Blood Transfusions Yes Endocrine History Hx Endocrine Disorders No Significant History HEENT History Hx Cataracts Yes: bilateral removed Integumentary History Hx Skin Disorders No Significant History Reproductive History Hx Reproductive Disorders No Significant History Psychosocial History Hx Psychiatric Disorders No Significant History Pain History History of Any Previous or Ongoing No Significant History Instance of Pain Anesthesia History Hx Anesthesia Reactions No Significant History Other History Hx Other Medical Conditions Yes: B LE lymphedema Evaluation Information Problem Diagnosis LE lymphedema and LE weakness Subjective Information recent hospitalization Mar 26 Query Text:As Reported By Patient/ to 13, due to fall and LE Family weakness; MRI and testing determined increased cervical cord compression and have referral to neurosurgeon, appt
--- NOTE | 2021-05-14 14:45 | PTOPEVAL ---
PHYSICAL THERAPY DISCHARGE 05-14-21 Refer to the clinical summary below, for his status today, compared to the initial evaluation. PT will be discharged at this time. The goals were partially achieved. Thank you for referring Gold Allen to [facility].? Please review, sign, date and return this Discharge report SUDHA. I agree with and certify that the following plan of care is medically necessary. Referring Physician Date Attending Provider: Dr. Braga Document 05/14/21 13:55 LITTLE (Rec: 05/14/21 14:45 LITTLE [id number]) Assessment Status Discharge Subjective Information Gold reports: legs are Query Text:As Reported By Patient/ stronger, can do more reps Family with the exercises; on stairs at home, little easier, but not really improved, still hold onto the railing, am still careful when carrying things; doing the exercises at home, most of the time- have had company from out of town and excitement of the holidays ; have not had any falls; Pain Assessment Timing of Pain Assessment Timing of Pain Assessment Assessment Self Report Self Report Pain Level 0 Pain Score Pain Score 0: Self Report Lower Extremity Muscle Strength Testing General Lower Extremity Strength Gross Lower Extremity Strength functional strength testing: single leg standing R and L 2- 3 seconds, unstable; performed with 1 UE support R & L 8-12 seconds; sit to stand without use of UE 's, required several attempts from 18 seat and unsteady with initial standing supine: SLR R 26 /L 30 reps; bridge 20 reps with decreased control of hips and not achieve full extension of hips side lying hip abduction R to 10' x 20 / L to 10' x 21 reps reviewed HEP; reinforced doing some leg exercises daily; added single leg standing with UE support PRN; upgrade of supine hip abduction to side lying position; also use theraband for supine and side lying exercis
== END 2021-05-15 09:38 | disposition home or self-care (01) ==
LOC: ANHPT 14:00
PROVIDERS: PCP Internal Medicine; Visit Provider Family Medicine
DX: I89.0 Lymphedema, not elsewhere classified (principal); R29.898 Other symptoms and signs involving the musculoskeletal system
CPT/HCPCS: 97110; 97162; 97530

== ENCOUNTER 2021-09-21 14:58 | Emergency (ER) | payer BC, SELFPAY ==
--- NOTE | ~2021-09-21 | CT_ITS ---
EXAMINATION: CT brain wo con DATE: 09/21/2021 15:50 INDICATION: trauma TECHNIQUE: Computed tomography (CT) of the head was performed without intravenous contrast. The mA wa s adjusted according to patient size. Iterative reconstruction technique was employed. The dose-lengt h product was 605.33 mGy-cm. COMPARISON: 03/26/2021. FINDINGS: No acute intracranial hemorrhage or extra-axial fluid collection. No hydrocephalus, mass, or herniation. No acute ischemic infarct. Unremarkable dural venous sinus attenuation. No acute osseous abnormality. Ethmoid and bilateral maxillary coastal thickening, otherwise the aerated spaces are clear. Mild atrophy. Moderate chronic white matter change. Atherosclerotic intracranial calcification. Bilat eral lens replacements. IMPRESSION: No acute intracranial process. Reviewed, dictated and finalized at location K.
--- NOTE | ~2021-09-21 | CT_ITS ---
EXAMINATION: CT diagnostic chest wo con DATE: 09/21/2021 15:50 INDICATION: Trauma. TECHNIQUE: Computed tomography (CT) of the chest, abdomen, and pelvis was performed without intraveno us contrast. Automated exposure control and iterative reconstruction technique were employed. The dos e-length product was 366.12 mGy-cm. COMPARISON: None FINDINGS: CHEST: Exam limited by arm positioning and lack of contrast. No thoracic aortic injury. Mild ectasia and atherosclerotic calcification. No mediastinal hematoma. No pericardial effusion. Coronary artery and aortic valve calcifications. No acute lung injury. Senescent changes. Bibasilar scar/atelectasis. No pleural effusion or pneumothorax. No acute upper abdominal abnormality. MUSCULOSKELETAL: Oblique distal left clavicular fracture with extension to the AC joint. Nondisplaced right manubrial fracture. Minimal retromanubrial hematoma. Nondisplaced left second and third posterior rib fractures . No fracture or traumatic malalignment of the thoracic spine. Thoracic scoliosis. Multilevel severe de generative disc disease. IMPRESSION: Distal left clavicle fracture. Right manubrial fracture. Left second and third posterior rib fracture s. Reviewed, dictated and finalized at location K. IMPRESSION: Distal left clavicle fracture. Right manubrial fracture. Left second and third posterior rib fractures.
--- NOTE | ~2021-09-21 | XR_ITS ---
EXAM: XR shoulder LT min 2V HISTORY: GLF 3 DAYS AGO, BRUISING TO ANTERIOR SHOULDER, PAIN THRUOUT COMPARISON: None available FINDINGS: Oblique intra-articular fracture of the distal left clavicle, with one half shaft width nguyen perior displacement of the distal fragment. Nondisplaced posterior rib fractures involving ribs two a nd three. The glenohumeral joint is aligned. Severe glenohumeral osteoarthritis. IMPRESSION: Displaced oblique intra-articular fracture of the distal left clavicle. Nondisplaced posterior second and third rib fractures. Reviewed, dictated and finalized at location K. IMPRESSION: Displaced oblique intra-articular fracture of the distal left clavicle. Nondisp laced posterior second and third rib fractures.
[2021-09-21 15:03] VITALS: BP 108/87; PULSE 112; RESP 17; TEMP 36.2; O2SAT 96
--- NOTE | 2021-09-21 15:43 | ED.FALL ---
HPI - Fall General Chief Complaint: Fall Stated Complaint: Fall 4 days ago Time Seen by Provider: 09/21/21 15:04 History of Present Illness HPI Narrative: Patient is a 80-year-old male who presents ER after a fall 3 days ago. Reports he was walking home with slight incline when he tripped and fell forward. Struck his chest and left shoulder on the ground. He thinks the bruise on his forehead is related to his glasses hitting his head and not actually hitting the ground. No loss of consciousness. He is not on blood thinner. Reports has had increased pain in his chest and left shoulder since the fall. Has pain with deep breath. No fevers or chills or sweats. No productive cough. No change in vision or hearing. No new confusion. Patient cannot lift his left arm past 45 degrees due to pain in the shoulder. Related Data Home Medications Medication Instructions Recorded Confirmed Lactobacills gasseri-Bifidobac 1 cap PO DAILY cap 07/26/19 08/05/21 bifidum,longum 1.5 billion cell capsule aspirin 81 mg chewable tablet 81 mg PO DAILY 07/26/19 08/05/21 calcium carbonate 600 mg-vitamin 1 cap PO DAILY cap 07/26/19 08/05/21 D3 12.5 mcg (500 unit) capsule fexofenadine 180 mg tablet 180 mg PO DAILY 07/26/19 08/05/21 fluticasone propionate 50 2 spray NASAL DAILY 07/26/19 08/05/21 mcg/actuation nasal spray,suspension multivitamin 1 tablet PO DAILY 07/26/19 08/05/21 saw palmetto 160 mg capsule 160 mg PO BID 07/26/19 08/05/21 selenium 200 mcg capsule 200 mcg PO DAILY 07/26/19 08/05/21 Allergies Allergy/AdvReac Type Severity Reaction Status Date / Time Horse Serum Proteins Allergy Unknown Hives Uncoded 09/21/21 15:01 Review of Systems Review of Systems: All systems reviewed & are unremarkable except as noted in HPI and below Constitutional: Constitutional: Denies chills, Denies fever(s) and Denies weakness ENT: Denies nasal congestion and Denies sore throat Cardiovascular: Cardiovascular: Reports chest pain (Chest wall), Denies rapid heart rate and Denies radiating jaw, neck or arm pain Respiratory: Respiratory: Denies cough, Denies dyspnea and Denies wheezing Gastrointestinal: Gastrointestinal: Denies abdominal pain, Denies nausea and Denies vomiting Musculoskeletal: Musculoskeletal: Reports arthralgias and Reports joint swelling Integumentary/Breasts: Skin/Breast: Denies erythema and Denies rash Neurologic: Denies syncope, Denies headache(s), Denies focal weakness and Denies numbness PMFSH Past Medical History Medical History Allergies Anemia Cervical spinal cord compression Chicken pox Chronic acquired lymphedema Diverticulosis Heartburn History of GI bleed Measles Mumps Osteoarthritis Thoracic spondylosis with cord compression Surgical History Surgical History History of hernia repair 1989 History of right knee joint replacement History of skin surgery basal cell carcinoma removal of left ear Family History Family History Father Myocardial infarction Mother Colon perforation Social History Social History Social History: The patient is and lives with his . The patient has 2 children. The patient is a lifelong nonsmoker does not use any alcohol marijuana or illicit drugs. 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 The patient is retired Code status full code Smoking status: Never smoker Alcohol intake: current Alcohol use details: rarely Substance use: never Spiritual care concerns: No Exam Narrative: GENERAL: Frail-appearing, well-nourished, and in no acute distress. HEAD: Normocephalic, atraumatic. 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 EYES: PERRL and EOMI. ENT: Mucous membranes moist. CHEST: Clear to auscultation. No
[2021-09-21] MEDS: MORPHINE SULFATE (*CRX) 4 MG/ML INJ IV PUSH (15:55)
[2021-09-21 17:48] VITALS: BP 130/77; PULSE 99; RESP 16; O2SAT 98
== END 2021-09-21 18:29 | disposition home or self-care (01) ==
PROVIDERS: Emergency Provider Emergency Medicine; PCP Internal Medicine
DX: S42.032A Displaced fracture of lateral end of left clavicle, initial encounter for closed fracture (principal); S22.21XA Fracture of manubrium, initial encounter for closed fracture; S22.42XA Multiple fractures of ribs, left side, initial encounter for closed fracture; I89.0 Lymphedema, not elsewhere classified; M19.90 Unspecified osteoarthritis, unspecified site; Z86.2 Personal history of diseases of the blood and blood-forming organs and certain disorders involving the immune mechanism; Z96.651 Presence of right artificial knee joint; Z85.828 Personal history of other malignant neoplasm of skin; W01.0XXA Fall on same level from slipping, tripping and stumbling without subsequent striking against object, initial encounter
CPT/HCPCS: 70450; 71250; 73030; 96374; 99284; A4565; J2270

== ENCOUNTER 2021-09-25 11:25 | Observation (INO) | payer BC, SELFPAY ==
[2021-09-25] VITALS (13 sets, daily range): BP systolic 105–139; BP diastolic 69–109; PULSE 80–112; RESP 13–30; TEMP 35.8–36.3; O2SAT 96–100; BMI 26.7
--- NOTE | ~2021-09-25 | XR_ITS ---
XR knee RT min 4V DATE: 09/25/2021 12:50 INDICATION: Fall last evening. Right knee pain. TECHNIQUE: 4 views COMPARISON: None FINDINGS: Diffuse osteopenia. Status post right total knee arthroplasty with patellar resurfacing. No recent fracture or dislocation, periosteal reaction or bone destruction is detected. IMPRESSION: No fracture or dislocation or joint effusion is detected Status post right total knee arthroplasty Osteopenia Reviewed, dictated and finalized at location B.
--- NOTE | ~2021-09-25 | XR_ITS ---
XR hip RT min 2V DATE: 09/25/2021 12:50 INDICATION: Fall last evening. Right hip pain. TECHNIQUE: AP and lateral views COMPARISON: None FINDINGS: Diffuse osteopenia. No fracture or dislocation, avascular necrosis or bone destruction of the right hip. Right hip joint space appears relatively preserved. The pubic symphysis and sacral iliac joints appear intact. Rotatory levoscoliosis and severe degenerative disc disease of the lumbar spine. Status post right inguinal herniorrhaphy. IMPRESSION: Osteopenia Rotatory levoscoliosis and severe degenerative disc disease of the lumbar spine No fracture or dislocation, avascular necrosis or bone destruction of right hip Reviewed, dictated and finalized at location B.
--- NOTE | ~2021-09-25 | XR_ITS ---
XR foot RT min 3V DATE: 09/25/2021 14:22 INDICATION: Fall. Foot pain. Bruising of second digit and dorsum of right foot. TECHNIQUE: 4 views COMPARISON: None FINDINGS: Diffuse osteopenia. Pes planus/Rocker-bottom foot. There is soft tissue swelling of the dorsum of the foot. There is prominent osteophyte change of the tibiotalar and tarsal joints. There are transverse fractures of the midshaft of the proximal phalanx of the third digit, at the nec k of the proximal phalanx of the fourth digit and proximal shaft of the proximal phalanx of the fifth digit. Possible fracture of the middle phalanx of the second digit. There is a subtle nondisplaced fracture of the neck of the fifth metatarsal bone. IMPRESSION: Fractures of the neck of fifth metatarsal bone and proximal phalanges of third through fi fth digits Possible fracture of the middle phalanx of the second digit Reviewed, dictated and finalized at location B. IMPRESSION: Fractures of the neck of fifth metatarsal bone and proximal phalang es of third through fifth digits Possible fracture of the middle phalanx of the second digit
--- NOTE | ~2021-09-25 | CT_ITS ---
EXAMINATION: CT thoracic lumbar wo con DATE: 09/25/2021 15:56 INDICATION: Multiple falls with rib pain and pelvic hematoma. TECHNIQUE: Computed tomography (CT) of the thoracic and lumbar spine was performed without intravenou s contrast. Automated exposure control and iterative reconstruction technique were employed. The dose -length product was 1605.12 mGy-cm. COMPARISON: Chest CT dated 09/21/2021, thoracic MR dated 03/17/[address] abdomen and pelvis dated 02/15 FINDINGS: 25 degree thoracolumbar dextroscoliosis measured between T10 and L2. 2 mm anterolisthesis T11 on T12 and 2 mm retrolisthesis L1 on L2 and L2 on L3. 6 mm anterolisthesis L5 on S1. Chronic fusion across T 12-L1. Vacuum phenomena within the posterior superior aspect of the T1 vertebral body. Large hemangio ma filling a significant portion of the T12 vertebral body. One third left posterior vertebral body h eight loss at L5 resulting from severe degenerative disc disease with chronic remodeling of the endpl ates. Similar remodeling with slight concavity to the adjacent endplates at the left posterior aspect of S1. Vertebral body heights are otherwise normal. No acute fracture. Severe disc height loss at T1-T2, T10-T11 and T11-T12. Mild to moderate disc height loss throughout t he intervening thoracic spine. There is additional severe disc height loss with vacuum phenomena at L 1-L2, L4-L5 and L5-S1. Moderate to severe disc height loss at L2-L3 and severe right-sided disc heigh t loss at L3-L4. Multilevel facet osteoarthritis, severe in the upper thoracic lumbar and lower thora cic spine and mild to moderate severity at multiple levels in the midthoracic spine. This contributes to multilevel neural foraminal stenosis throughout the thoracic and lumbar spine. This could be desc ribed in further details should it affect clinical management. The hypertrophic facet osteoarthritis and posterior disc ossified complexes result in severe central canal stenosis at L3-L4 and L4-L5. Add itional moderate central canal stenosis at T10-T11 through L2-L3 sparing the fused T12-L1 segment. Mild atelectasis at the bilateral lung bases. 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 More distal aorta is normal in caliber. There are some excreted contrast at the bilateral kidneys from the earlier contrast-enhanced CT of the abdomen and pelvis. There are some parapelvic cysts at the upper pole of the left kidney. IMPRESSION: 1. Moderate thoracolumbar dextroscoliosis with severe spondylosis. No fracture or other evident acute osseous abnormality in the thoracic or lumbar spine. Reviewed, dictated and finalized at location A.
--- NOTE | ~2021-09-25 | CT_ITS ---
EXAMINATION: CT cervical spine wo con DATE: 09/25/2021 15:55 INDICATION: Frequent falls. Rib pain. TECHNIQUE: Computed tomography (CT) of the cervical spine was performed without intravenous contrast. Automated exposure control and iterative reconstruction technique were employed. The dose-length pro duct was 214.42 mGy-cm. COMPARISON: Cervical spine MRI dated 03/27/2021 FINDINGS: Unchanged 3 mm anterolisthesis C4 on C5 and C7 on T1. 1 mm anterolisthesis of T1 on T2. Vertebral bod y heights are normal. No fracture. Severe disc height loss at C2-C3, C6-C7 and C7-T1. Moderate disc h eight loss at C3-C4, C4-C5, C5-C6, T1-T2 and T2-T3. Multilevel severe bilateral cervical facet and un covertebral osteoarthritis. This contributes to multilevel bilateral cervical neural foraminal stenos is as detailed on a level by level basis on the prior study. Posterior disc osteophyte complexes thro ughout the cervical spine relatively sparing C5-C6. This most prominent at C4-C5 resulting mild to mo derate central canal stenosis with mild central canal stenosis at many of the remaining levels in the cervical spine. Middle ear cavities, mastoid air cells and visualized portions of the sphenoid sinus , airway and apices of the lungs are clear. Cervical soft tissues are unremarkable. IMPRESSION: 1. Severe cervical spondylosis. No acute osseous abnormality. Reviewed, dictated and finalized at location A.
--- NOTE | ~2021-09-25 | XR_ITS ---
EXAMINATION: XR ribs RT 2V w CXR 2V INDICATION: Rib pain after fall TECHNIQUE: Frontal and lateral views of the chest and 3 views of the right ribs were obtained. COMPARISON: CT, 10/03/2021 FINDINGS: The lungs are free of acute opacities. No displaced rib fracture is identified. There is no pleural effusion or pneumothorax. The cardiomediastinal silhouette is normal. There is mild thoracic spondylosis. Severe lumbar spondylosis is noted. IMPRESSION: 1. No acute cardiopulmonary abnormality or evidence of displaced rib fracture. Reviewed, dictated and finalized at location A.
--- NOTE | ~2021-09-25 | CT_ITS ---
EXAMINATION: CT pelvis w con DATE: 09/25/2021 14:07 INDICATION: Right gluteal hematoma. Assess for active extravasation. TECHNIQUE: Computed tomography (CT) of the pelvis was performed with 100 mL Omnipaque-350 intravenous contrast. Automated exposure control and iterative reconstruction technique were employed.The dose-l ength product was 627.54 mGy-cm. COMPARISON: 03/11/2015 FINDINGS: There is subcutaneous edema in the right buttock surrounding a masslike lesion measuring 8.1 cm crani ocaudally and 6.6 x 4.2 cm in maximal transaxial dimensions. The lesion measures soft tissue density which could be consistent with provided history of hematoma. No evident active contrast extravasation . No fracture. Levoscoliosis of the visualized mid to lower lumbar spine along with 1.5 similar left lateral listhesis of L4 on L5. Severe lumbar spondylosis with prominent endplate remodeling at L5-S1. Visualized caudal portion of the right hepatic lobe, the gallbladder fundus and lower poles of both kidneys appear normal. There are few sigmoid diverticula without adjacent from 3 change to suggest di verticular colitis. Appendix and visualized small bowel are unremarkable. There is mild bladder wall thickening accounting for the degree of prominent distention of the bladder along with some haziness to the immediately adjacent fat which could be seen with cystitis either acute or chronic and would c orrelate with urinalysis. Postoperative change of prior right inguinal hernia repair. Prostate calcif ications. No evident free intraperitoneal gas or fluid. No pathologically enlarged pelvic or inguinal lymphadenopathy. Atherosclerotic calcific a cyst along the visualized inferior abdominal aorta and b ilateral iliac arteries. Ectasia of the bilateral common iliac arteries measuring 2.3 similar maximal diameter on the left and 2.2 cm on the right. IMPRESSION: 1. 8.1 x 6.6 x 4.2 cm masslike lesion in the subcutaneous fat of the right buttock with surrounding f rom trace stranding. Could not absolutely exclude enhancing soft tissue mass in the absence of precon trast imaging however the appearance would be consistent with a posttraumatic hematoma without eviden t active extravasation. 2. Wall thickening of the markedly distended bladder with with subtle haziness to the immediately adj acent fat which raises concern for cystitis. Correlate with urinalysis. Reviewed, dictated and finalized at location A. IMPRESSION: 1. 8.1 x 6.6 x 4.2 cm masslike lesion in the subcutaneous fat of the right butt ock with surrounding from trace stranding. Could not absolutely exclude enhanci ng soft tissue mass in the absence of precontrast imaging however the appearanc e would be consistent with a posttraumatic hematoma without evident active extr avasation. 2. Wall thickening of the markedly distended bladder with with subtle haziness to the immediately adjacent fat which raises concern for cystitis. Correlate urinalysis.
--- NOTE | 2021-09-25 13:05 | ED.FALL ---
HPI - Fall General Chief Complaint: Fall Stated Complaint: fall Time Seen by Provider: 09/25/21 13:00 Source: patient and family Mode of arrival: ambulatory Limitations: no limitations History of Present Illness HPI Narrative: The patient is a 80-year-old male with a history of anemia, cervical stenosis, acid reflux, recently diagnosed with left clavicular fracture, left rib fractures from ground-level fall, presenting to the emergency department for evaluation of ground-level fall with right foot pain. Patient states that he lost his balance while reaching for a light switch in his bathroom. This caused him to fall forward, hitting his right rib on the tub. Patient did fall to the ground but denies head trauma or loss of conscious. Patient denies prodromal symptoms prior to the fall such as chest pain, lightheadedness, dizziness or weakness. Patient denies feeling weak, states that it is easy for him to lose his balance. Patient reports bruising, aching pain in the right foot. He denies ankle pain or right knee pain. Patient reports bruising to his right rib cage as well as right buttock area. Patient takes a daily aspirin but denies other anticoagulation. He denies shortness of breath. He denies dysuria or hematuria. He has been ambulatory but this is noticeably increased his right foot pain. Patient states he feels safe at home, states that he is trying to be more aware of sudden movements of to not lose his balance. He is denying headache pain, vision changes, nausea or vomiting. No altered mentation. He denies neck pain, thoracic or lumbar back pain. Patient denies dysuria, hematuria. Denies fever or chills. No recent medication changes or illnesses. Patient without chest pain, pleuritic pain or shortness of breath. Of note, I question why patient was not wearing sling if he had recently been diagnosed with a left clavicular fracture, patient states it is difficult for him to take it off. Related Data Home Medications Medication Instructions Recorded Confirmed Lactobacills gasseri-Bifidobac 1 cap PO DAILY cap 07/26/19 09/24/21 bifidum,longum 1.5 billion cell capsule aspirin 81 mg chewable tablet 81 mg PO DAILY 07/26/19 09/24/21 calcium carbonate 600 mg-vitamin 1 cap PO DAILY cap 07/26/19 09/24/21 D3 12.5 mcg (500 unit) capsule fexofenadine 180 mg tablet 180 mg PO DAILY 07/26/19 09/24/21 fluticasone propionate 50 2 spray NASAL DAILY 07/26/19 09/24/21 mcg/actuation nasal spray,suspension multivitamin 1 tablet PO DAILY 07/26/19 09/24/21 saw bookeretto 160 mg capsule 160 mg PO BID 07/26/19 09/24/21 selenium 200 mcg capsule 200 mcg PO DAILY 07/26/19 09/24/21 Allergies Allergy/AdvReac Type Severity Reaction Status Date / Time Horse Serum Proteins Allergy Unknown Hives Uncoded 09/25/21 12:19 Review of Systems Review of Systems: CONSTITUTIONAL: Denies fever, chills, or sweats. EYES: Denies visual changes, redness, or discharge. ENT: Denies rhinorrhea, congestion, sore throat, or otalgia. CARDIOVASCULAR: Denies chest pain, palpitations, or edema., Reporting right chest wall pain with mild amount of bruising. RESPIRATORY: Denies cough or dyspnea. GASTROINTESTINAL: Denies abdominal pain, nausea, vomiting, or diarrhea. GENITOURINARY: Denies dysuria or hematuria. SKIN: Denies rash or itching. Reports bruising to right buttock, right chest wall. MUSCULOSKELETAL: Denies back pain, reports right foot pain, reports right buttock pain, reports right rib pain NEUROLOGIC: Denies headache, numbness, or weakness. [facility] Past Medical History Medical History (Updated 09/25/21 @ 17:46 by Aditi Black MD) Allergies Anemia Cervical spinal cord compression Chicken pox Chronic acquired lymphedema Diverticulosis Heartburn History of GI bleed History of revision of total replacement of left knee joint Measles Mumps Osteoarthritis Thoracic spondylosis with cord compression Surgical History Surgical History
[2021-09-25 13:46] LABS: Basophils Absolute Auto 0.1 K/mm3 (0.0-0.1); Basophils Percent Auto 0.5 % (0.2-1.2); Eosinophils Absolute Auto 0.1 K/mm3 (0-0.3); Eosinophils Percent Auto 0.5 % (0-4.4); Hematocrit 32.1 % (42.0-52.0); Hemoglobin 10.8 g/dL (14.0-18.0); Immature Granulocyte Absolute 0.06 K/mm3 (0.00-0.031); Immature Granulocyte Percent A 0.6 % (0-0.5); Lymphocytes Absolute Auto 1.04 K/mm3 (0.9-3.2); Lymphocytes Percent Auto 10.6 % (18.3-44.2); Mean Corpuscular HGB Conc 33.6 g/dl (32-36); Mean Corpuscular Hemoglobin 31.9 pg (26-34); Mean Corpuscular Volume 94.7 fl (80-100); Mean Platelet Volume 8.6 fl (7.4-10.4); Monocytes Percent Auto 10.5 % (2.6-8.5); Neutrophils Absolute Auto 7.5 K/mm3 (1.3-6.7); Neutrophils Percent Auto 77.3 % (45.5-73.1); Platelet Count Result 219 k/mm3 (150-375); Red Blood Count 3.39 M/mm3 (4.6-6.20); Red Cell Distribution Width 13.2 % (11.5-14.5); White Blood Count 9.8 K/mm3 (4.5-10.0)
[2021-09-25 13:54] LABS: Anion Gap 7 mmol/L (8-16); Blood Urea Nitrogen 18 mg/dL (9-20); Calcium 8.6 mg/dL (8.4-10.2); Carbon Dioxide 25 mmol/L (22-30); Chloride 95 mmol/L (98-107); Estimated CRCL calculation 62 ml/min; Estimated Glomerular Filt Rate > 60; Glucose 97 mg/dL (65-110); Potassium 4.3 mmol/L (3.4-5.0); Sodium 127 mmol/L (137-145)
[2021-09-25 15:18] LABS: Appearance Urine Clear (Clear); Bilirubin Urine Negative (Negative); Blood Urine Trace-lysed (Negative); Color Urine Yellow (Yellow); Glucose Urine UA Negative (Negative); Ketones Urine Negative (Negative); Leukocyte Esterase Ur Negative LEU/UL (Negative); Nitrate Urine Negative (Negative); Protein Urine Negative (Negative); Urobilinogen Urine 0.2 mg/dL (<2.0)
[2021-09-25 15:22] LABS: SARS-CoV-2 RNA PCR Negative
[2021-09-25 15:23] LABS: Bacteria Urine Trace /hpf; Mucus Urine Rare /lpf; RBC Urine 0-2 /hpf (0-2); Squamous Epithelial Cell Urine Rare /hpf (Few); WBC Urine 0-3 /hpf
[2021-09-25 15:25] LABS: Add Urine Microscopic? YES
[2021-09-25] MEDS: oxyCODONE/ACETAMINOPHEN (*CRX) 5-325 MG TABLET 1 TABLET PO (15:40)
--- NOTE | 2021-09-25 15:52 | ECG_ITS ---
Measurements Intervals [place] Rate: 95 P: 47 [place]: 212 QRS: -14 QRSD: 102 T: -9 QT: 352 QTc: 444 Interpretive Statements SINUS RHYTHM WITH FIRST DEGREE AV BLOCK BORDERLINE R WAVE PROGRESSION, ANTERIOR LEADS BORDERLINE ST-T WAVE ABNORMALITY- ANT/INF LEADS BASELINE ARTIFACT- I, II, III, V6 ABNORMAL ECG Electronically Signed On 09-25-2021 16:07:03 CDT by Elian Shah D.O.
--- NOTE | 2021-09-25 15:53 | PM.IMHP ---
H&P: HPI History of Present Illness Date/Time: 09/25/21 15:53 Gold Allen is a 80-year-old male with medical history significant for anemia, cervical stenosis, acid reflux, hyponatremia, and frequent falls. He presented to the emergency department today for evaluation of a fall on ground level. He reports losing his balance small reaching for the light switch in the bathroom. He states that this caused him to fall forward and where he was unable to grab nearby objects to postop his phone. He reports hitting his right arm and right ribs on the top edge in the bathroom. He also reports the toes of his right foot were bent backwards. He denies prior dizziness, lightheadedness, weakness, chest pain, shortness a breath or vision changes. Patient was last seen in the emergency department approximately 1 week ago following a fall at [facility] while walking with his on the upper level. He states at that time his left hand issue I tripped on the tile and he fell forward. He did not immediately seek medical attention, however 3 days later he presented to the emergency room with a pain to his left side and was found to have left distal clavicular fracture as well as left 2nd and 3rd nondisplaced rib fractures. The patient denies new medication changes, no appetite changes, no recent travel and no sick contacts. He denies abdominal pain, nausea, vomiting, diarrhea or constipation, no dysuria or flank pain. He does endorse ?funny sensation to both legs? and difficulty sleeping due to inability to sleep on his stomach from recent rib fractures. In the ED his vitals were temp 36.3? C, pulse 104 beats per minute, respirations 17 beats per minute blood pressure 113/85, and SpO2 100% on room air. Lab work was significant for hemoglobin 10.8 (previous 12.1 in March of 2021), hematocrit 32.1, sodium 127 (see previous sodium 135 in March 2021) chloride 95, normal BUN, creatinine, glucose, calcium and potassium. Imaging shows fractures of the neck of 5th metatarsal bone and proximal phalanges of the 3rd through 5th digits. A possible fracture of the mid phalanx of the 2nd digit. CT cervical spine showed severe cervical spondylosis with mild to moderate central canal stenosis C4-C5 and mild central canal stenosis stenosis to our remaining cervical spine. Thoracic lumbar CT shows moderate thoracolumbar dextroscoliosis and severe spondylosis. No fractures or acute osseous abnormality was noted. Orthopedics was consulted in the emergency room. Chief Complaint: Fall Review of Systems Review of Systems: All systems reviewed & are unremarkable except as noted in HPI and below (HPI) [facility] Past Medical History Medical History Allergies Anemia Cervical spinal cord compression Chicken pox Chronic acquired lymphedema Diverticulosis Heartburn History of GI bleed History of revision of total replacement of left knee joint Measles Mumps Osteoarthritis Thoracic spondylosis with cord compression Surgical History Surgical History (Updated 09/25/21 @ 17:36 by Marietta Wright APRN) History of carpal tunnel surgery bilateral History of hernia repair 1989 History of right knee joint replacement History of skin surgery basal cell carcinoma removal of left ear Family History Family History Father Myocardial infarction Mother Colon perforation Social History Social History Social History: The patient is and lives with his . The patient has 2 children. The patient is a lifelong nonsmoker does not use any alcohol marijuana or illicit drugs. 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 The patient is retired Code status full code Smoking status: Never smoker Alcohol intake: current Alcohol use details: rarely Substance use: n
[2021-09-25 17:36] LABS: Hematocrit 32.2 % (42.0-52.0); Hemoglobin 10.9 g/dL (14.0-18.0)
[2021-09-25 17:43] LABS: Sodium Urine Random 44 meq/L
[2021-09-25 18:00] LABS: Troponin I < 0.012 ng/mL (0.000-0.034)
--- NOTE | 2021-09-25 18:00 | PC.NURSE ---
Assumed care of pt. at this time. Report from ALEXIS Crespo
[2021-09-25 18:53] LABS: Folic Acid > 20.0 ng/mL (2.76->20)
[2021-09-25 18:57] LABS: Sodium 129 mmol/L (137-145)
[2021-09-25 19:19] LABS: Iron 45 ug/dL (49-181)
[2021-09-25 19:28] LABS: Percent Iron Saturation 17 % (20-50)
[2021-09-25] MEDS: SODIUM CHLORIDE 0.9% IV 1,000 ML 125 ML IV CONT (19:40)
--- NOTE | 2021-09-25 20:00 | ADMGEN ---
This patient, Gold Allen, was admitted to Medical Room 250-01. Patient/family oriented to hospital policies and general routines including ID bracelet, bed and alarms, visiting hours, pain management, procedures, bathroom and other care routines, personal items, smoking policy, room service/diet, and visiting hours. Information on how to activate the Rapid Response Team has been discussed. Patient/Family are encouraged to report perceived risks to care and to ask questions if they do not understand what they are told or what they should do.
[2021-09-25] MEDS: HYDROcodone/acetaminophen (*CRX) 5-325 MG TABLET 1 TAB PO (20:58)
[2021-09-25 22:09] LABS: Hematocrit 30.7 % (42.0-52.0); Hemoglobin 10.1 g/dL (14.0-18.0)
[2021-09-26] VITALS: PULSE 91
[2021-09-26] MEDS: HYDROcodone/acetaminophen (*CRX) 5-325 MG TABLET 1 TAB PO (02:33)
[2021-09-26] MEDS: SODIUM CHLORIDE 0.9% IV 1,000 ML 125 ML IV CONT ×2 (02:36→10:19)
[2021-09-26 04:00] VITALS: PULSE 94
[2021-09-26 05:26] VITALS: BP 121/52; PULSE 94; RESP 16; TEMP 36.6; O2SAT 96
[2021-09-26 05:39] LABS: Basophils Absolute Auto 0.1 K/mm3 (0.0-0.1); Basophils Percent Auto 1.1 % (0.2-1.2); Eosinophils Absolute Auto 0.4 K/mm3 (0-0.3); Eosinophils Percent Auto 5.6 % (0-4.4); Hematocrit 28.1 % (42.0-52.0); Hemoglobin 9.2 g/dL (14.0-18.0); Immature Granulocyte Absolute 0.03 K/mm3 (0.00-0.031); Immature Granulocyte Percent A 0.5 % (0-0.5); Lymphocytes Absolute Auto 1.59 K/mm3 (0.9-3.2); Lymphocytes Percent Auto 23.9 % (18.3-44.2); Mean Corpuscular HGB Conc 32.7 g/dl (32-36); Mean Corpuscular Hemoglobin 31.5 pg (26-34); Mean Corpuscular Volume 96.2 fl (80-100); Mean Platelet Volume 8.5 fl (7.4-10.4); Monocytes Absolute Auto 0.8 K/mm3 (0.1-0.6); Monocytes Percent Auto 12.5 % (2.6-8.5); Neutrophils Absolute Auto 3.8 K/mm3 (1.3-6.7); Neutrophils Percent Auto 56.4 % (45.5-73.1); Platelet Count Result 195 k/mm3 (150-375); Red Blood Count 2.92 M/mm3 (4.6-6.20); Red Cell Distribution Width 13.4 % (11.5-14.5); White Blood Count 6.6 K/mm3 (4.5-10.0)
[2021-09-26 06:02] LABS: Alanine Aminotransferase 13 U/L (6-50); Alkaline Phosphatase 66 U/L (38-126); Anion Gap 6 mmol/L (8-16); Aspartate Amino Transferase 27 U/L (17-59); Bilirubin,Total 0.7 mg/dL (0.2-1.3); Blood Urea Nitrogen 14 mg/dL (9-20); Calcium 8.1 mg/dL (8.4-10.2); Carbon Dioxide 28 mmol/L (22-30); Chloride 97 mmol/L (98-107); Estimated CRCL calculation 76 ml/min; Estimated Glomerular Filt Rate > 60; Glucose 98 mg/dL (65-110); Potassium 4.1 mmol/L (3.4-5.0); Sodium 131 mmol/L (137-145)
[2021-09-26 06:12] LABS: Vitamin D 25 Hydroxy 40.8 ng/mL
[2021-09-26 08:00] VITALS: PULSE 98
[2021-09-26] MEDS: MULTIVITAMINS THERAPEUTIC TAB (*BKC) 1 TABLET PO (09:06)
[2021-09-26] MEDS: LIDOCAINE 5% PATCH 1 PATCH TRANSDERM (09:06)
[2021-09-26] MEDS: ACIDOPHILUS/BULGARICUS CHEWABLE TABLET 1 TABLET PO (09:06)
[2021-09-26] MEDS: FLUTICASONE PROPIONATE 0.05% NA SPR 16 GM BTL (*BKC) 2 SPRAY NASAL (09:07)
[2021-09-26] MEDS: LORATADINE 10 MG TABLET PO (09:07)
[2021-09-26] MEDS: PANTOPRAZOLE 40 MG TABLET PO (09:07)
[2021-09-26] MEDS: DOCUSATE SODIUM 100 MG CAPSULE PO (09:07)
[2021-09-26 09:08] LABS: Magnesium 1.6 mg/dL (1.6-2.3)
[2021-09-26 10:42] LABS: Hematocrit 29.5 % (42.0-52.0); Hemoglobin 9.8 g/dL (14.0-18.0)
[2021-09-26 12:00] VITALS: PULSE 110
[2021-09-26] MEDS: MAGNESIUM SULF 2 GM/WATER 50ML 2 GM/50 ML BAG IVPB (12:09)
--- NOTE | 2021-09-26 12:13 | PM.CNOR ---
Assessment and Plan Assessment and plan (1) Foot fracture, right: Qualifiers: Encounter type: initial encounter Fracture type: closed Qualified Code(s): S92.901A - Unspecified fracture of right foot, initial encounter for closed fracture Code(s): S92.901A - Unspecified fracture of right foot, initial encounter for closed fracture Status: Acute (2) Frequent falls: Code(s): R29.6 - Repeated falls Status: Acute Assessment and Plan: Several forefoot fractures without significant displacement. 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 Workup pending for causes of falling. He may bear full weight on the foot. He has a hard sole shoe. Over the next 1 or 2 weeks, as he feels better, he may use his sandals which are quite supportive and more conforming for his chronic foot deformity. Follow-up with me in the clinic in few weeks with x-rays. Okay to discharge from an orthopedic standpoint. History of Present Illness HPI Consult date: 09/26/21 Chief complaint: fall Narrative: Pleasant 80-year-old gentleman consulted with fractures of the forefoot. He states that he tripped and fell at home in the bathroom. He has had a few falls recently. He says that when he walks occasionally his foot gets caught on the floor. He would just had a follow-up for his total knees. He was advised on fall prevention. He was admitted through the emergency room for workup of other potential causes of falling. He denies any other symptoms other than chest pain and left clavicle pain from a fracture sustained there last week. The patient has a history of flatfoot since childhood. He has worn special shoes and orthotics. Also history of GI bleed. Bilateral total knee replacements. Cervical and thoracolumbar spine spondylosis. [facility] Past Medical History Medical History Allergies Anemia Cervical spinal cord compression Chicken pox Chronic acquired lymphedema Diverticulosis Heartburn History of GI bleed History of revision of total replacement of left knee joint Measles Mumps Osteoarthritis Thoracic spondylosis with cord compression Surgical History Surgical History (Updated 09/25/21 @ 17:36 by Marietta Wright APRN) History of carpal tunnel surgery bilateral History of hernia repair 1989 History of right knee joint replacement History of skin surgery basal cell carcinoma removal of left ear Family History Family History Father Myocardial infarction Mother Colon perforation Social History Social History Social History: The patient is and lives with his . The patient has 2 children. The patient is a lifelong nonsmoker does not use any alcohol marijuana or illicit drugs. 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 The patient is retired Code status full code Smoking status: Never smoker Alcohol intake: never Alcohol use details: rarely Substance use: never Substance use type: does not use Spiritual care concerns: No Meds Home Medications and Allergies Home Medications Medication Instructions Recorded Confirmed Type aspirin 81 mg chewable tablet See Rx Instructions .ROUTE .COMPLEX 07/26/19 09/25/21 History calcium carbonate 600 mg-vitamin 1 cap PO BID cap 07/26/19 09/25/21 History D3 12.5 mcg (500 unit) capsule fexofenadine 180 mg tablet 180 mg PO DAILY 07/26/19 09/25/21 History fluticasone propionate 50 2 spray NASAL DAILY 07/26/19 09/25/21 History mcg/actuation nasal spray,suspension multivitamin 1 tablet PO DAILY 07/26/19 09/25/21 History saw palmetto 160 mg capsule 160 mg PO BID 07/26/19 09/25/21 History selenium 200 mcg capsule 200 mcg PO DAILY 07/26/19 09/25/21 History az
--- NOTE | 2021-09-26 14:17 | PM.DS ---
DS: Admitting Diagnosis Discharge Date 09/26/2021 1424 Admitting Diagnosis (1) Hyponatremia: Code(s): E87.1 - Hypo-osmolality and hyponatremia Status: Acute (2) Foot fracture, right: Qualifiers: Encounter type: initial encounter Fracture type: closed Qualified Code(s): S92.901A - Unspecified fracture of right foot, initial encounter for closed fracture Code(s): S92.901A - Unspecified fracture of right foot, initial encounter for closed fracture Status: Acute (3) Fall: Qualifiers: Encounter type: subsequent encounter Qualified Code(s): W19.XXXD - Unspecified fall, subsequent encounter Code(s): W19.XXXA - Unspecified fall, initial encounter Status: Acute (4) Clavicle fracture: Qualifiers: Clavicle location: unspecified part of clavicle Encounter type: subsequent encounter Fracture alignment: nondisplaced Fracture healing: with routine healing Fracture type: closed Laterality: left Qualified Code(s): S42.002D - Fracture of unspecified part of left clavicle, subsequent encounter for fracture with routine healing Code(s): S42.009A - Fracture of unspecified part of unspecified clavicle, initial encounter for closed fracture Status: Acute (5) Multiple closed fractures of ribs of left side: Qualifiers: Encounter type: subsequent encounter Fracture healing: with routine healing Qualified Code(s): S22.42XD - Multiple fractures of ribs, left side, subsequent encounter for fracture with routine healing Code(s): S22.42XA - Multiple fractures of ribs, left side, initial encounter for closed fracture Status: Acute (6) Cervical spinal cord compression: Code(s): G95.20 - Unspecified cord compression Status: Chronic (7) Anemia: Qualifiers: Anemia type: unspecified type Qualified Code(s): D64.9 - Anemia, unspecified Code(s): D64.9 - Anemia, unspecified DS: Discharge Diagnosis Discharge Diagnosis (1) Foot fracture, right: Qualifiers: Encounter type: initial encounter Fracture type: closed Qualified Code(s): S92.901A - Unspecified fracture of right foot, initial encounter for closed fracture Code(s): S92.901A - Unspecified fracture of right foot, initial encounter for closed fracture Status: Acute (2) Chronic hyponatremia: Code(s): E87.1 - Hypo-osmolality and hyponatremia Status: Acute (3) Anemia: Qualifiers: Anemia type: iron deficiency Iron deficiency anemia type: unspecified iron deficiency Qualified Code(s): D50.9 - Iron deficiency anemia, unspecified Code(s): D64.9 - Anemia, unspecified Status: Chronic (4) Weakness: Code(s): R53.1 - Weakness Status: Acute (5) Frequent falls: Code(s): R29.6 - Repeated falls Status: Acute (6) Clavicle fracture: Qualifiers: Clavicle location: unspecified part of clavicle Encounter type: subsequent encounter Fracture alignment: nondisplaced Fracture healing: with routine healing Fracture type: closed Laterality: left Qualified Code(s): S42.002D - Fracture of unspecified part of left clavicle, subsequent encounter for fracture with routine healing Code(s): S42.009A - Fracture of unspecified part of unspecified clavicle, initial encounter for closed fracture Status: Acute (7) Multiple closed fractures of ribs of left side: Qualifiers: Encounter type: subsequent encounter Fracture healing: with routine healing Qualified Code(s): S22.42XD - Multiple fractures of ribs, left side, subsequent encounter for fracture with routine healing Code(s): S22.42XA - Multiple fractures of ribs, left side, initial encounter for closed fracture Status: Acute (8) Thoracic spondylosis with cord compression: Code(s): M47.14 - Other spondylosis with myelopathy, thoracic region Status: Acute (9) C
[2021-09-29 18:16] LABS: Osmolality, Urine 307 mOsm/kg (50-1200)
== END 2021-09-26 16:00 | disposition home or self-care (01) ==
LOC: ANHED 17:47 → ANH2MED 09-26 14:16 → ANH3MEDSUR 09-29 14:01
PROVIDERS: Admitting Provider Student in an Organized Health Care Education/Training Program; Emergency Provider Emergency Medicine; PCP Internal Medicine; Visit Provider Nurse Practitioner Family
DX: S92.901A Unspecified fracture of right foot, initial encounter for closed fracture (principal); W18.30XA Fall on same level, unspecified, initial encounter; S22.42XD Multiple fractures of ribs, left side, subsequent encounter for fracture with routine healing; S42.002D Fracture of unspecified part of left clavicle, subsequent encounter for fracture with routine healing; W18.30XD Fall on same level, unspecified, subsequent encounter; E87.1 Hypo-osmolality and hyponatremia; G95.20 Unspecified cord compression; D64.9 Anemia, unspecified; Z20.822 Contact with and (suspected) exposure to COVID-19; Z96.651 Presence of right artificial knee joint; R53.1 Weakness; R29.6 Repeated falls
CPT/HCPCS: 36415; 71046; 71100; 72125; 72128; 72131; 72193; 73502; 73564; 73630; 80048; 80053; 81001; 82306; 82607; 82746; 83540; 83550; 83735; 83930; 83935; 84295; 84300; 84484; 85014; 85018; 85025; 93005; 96361; 96374; 97161; 97165; 99285; A9270; C9803; G0378; J3475; J7030; Q9967; U0003; U0005

== ENCOUNTER 2021-10-02 12:09 | Outpatient (CLI) | payer BC, SELFPAY ==
[2021-10-02 13:15] LABS: Anion Gap 8 mmol/L (8-16); Blood Urea Nitrogen 18 mg/dL (9-20); Calcium 9.1 mg/dL (8.4-10.2); Carbon Dioxide 29 mmol/L (22-30); Chloride 91 mmol/L (98-107); Estimated Glomerular Filt Rate > 60; Glucose 102 mg/dL (65-110); Potassium 4.1 mmol/L (3.4-5.0); Sodium 128 mmol/L (137-145)
== END 2021-10-02 12:10 | disposition home or self-care (01) ==
PROVIDERS: PCP Internal Medicine; Visit Provider Nurse Practitioner Family
DX: E87.1 Hypo-osmolality and hyponatremia (principal)
CPT/HCPCS: 36415; 80048

== ENCOUNTER 2021-10-08 12:32 | Outpatient (CLI) | payer BC, SELFPAY ==
[2021-10-08 13:56] LABS: Basophils Absolute Auto 0.1 K/mm3 (0.0-0.1); Eosinophils Absolute Auto 0.3 K/mm3 (0-0.3); Eosinophils Percent Auto 3.8 % (0-4.4); Hematocrit 34.9 % (42.0-52.0); Hemoglobin 11.6 g/dL (14.0-18.0); Immature Granulocyte Absolute 0.03 K/mm3 (0.00-0.031); Immature Granulocyte Percent A 0.4 % (0-0.5); Lymphocytes Absolute Auto 1.61 K/mm3 (0.9-3.2); Lymphocytes Percent Auto 23.7 % (18.3-44.2); Mean Corpuscular HGB Conc 33.2 g/dl (32-36); Mean Corpuscular Hemoglobin 32.1 pg (26-34); Mean Corpuscular Volume 96.7 fl (80-100); Mean Platelet Volume 8.6 fl (7.4-10.4); Monocytes Absolute Auto 0.8 K/mm3 (0.1-0.6); Monocytes Percent Auto 12.4 % (2.6-8.5); Neutrophils Percent Auto 58.7 % (45.5-73.1); Platelet Count Result 351 k/mm3 (150-375); Red Blood Count 3.61 M/mm3 (4.6-6.20); Red Cell Distribution Width 14.9 % (11.5-14.5); White Blood Count 6.8 K/mm3 (4.5-10.0)
[2021-10-08 14:08] LABS: Alanine Aminotransferase 15 U/L (6-50); Albumin Level 4.6 g/dL (3.5-5.1); Alkaline Phosphatase 114 U/L (38-126); Anion Gap 7 mmol/L (8-16); Aspartate Amino Transferase 34 U/L (17-59); Bilirubin,Total 0.9 mg/dL (0.2-1.3); Blood Urea Nitrogen 14 mg/dL (9-20); Calcium 9.5 mg/dL (8.4-10.2); Carbon Dioxide 30 mmol/L (22-30); Chloride 93 mmol/L (98-107); Estimated Glomerular Filt Rate > 60; Glucose 95 mg/dL (65-110); Potassium 4.5 mmol/L (3.4-5.0); Sodium 130 mmol/L (137-145)
== END 2021-10-08 12:33 | disposition home or self-care (01) ==
PROVIDERS: PCP Internal Medicine; Visit Provider Clinical Nurse Specialist
DX: E87.1 Hypo-osmolality and hyponatremia (principal); D50.9 Iron deficiency anemia, unspecified
CPT/HCPCS: 36415; 80053; 85025

== ENCOUNTER 2021-10-29 13:16 | Outpatient (CLI) | payer BC, SELFPAY ==
--- NOTE | ~2021-10-29 | XR_ITS ---
XR clavicle LT DATE: 10/29/2021 13:56 INDICATION: Left clavicle fracture TECHNIQUE: AP and angled AP views COMPARISON: 09/21/2021 left shoulder FINDINGS: Again noted is an intra-articular fracture of the lateral aspect of the clavicle, with appr oximately 5 mm superior and 2.5 mm medial displacement. No 7 change in position or alignment since 09/21/2021. Osteophytic change at the left glenohumeral joint. Osteopenia. IMPRESSION: No significant change in position or alignment at the linear oblique intra-articular frac ture of the clavicle Reviewed, dictated and finalized at location A. IMPRESSION: No significant change in position or alignment at the linear obliqu e intra-articular fracture of the clavicle
--- NOTE | ~2021-10-29 | XR_ITS ---
EXAM: XR foot RT min 3V DATE: 10/29/2021 13:56 HISTORY: 3 wk f/u for fx . COMPARISON: 10/08/2021. FINDINGS: Decreased mineralization. Redemonstration of fractures of the fifth metatarsal neck, proxi mal phalanges of the third through fifth digits, and middle phalanges of the second digit, with early healing changes. No acute fracture or dislocation. Tibiotalar and mid foot degenerative change. Pes planus. IMPRESSION: Early healing changes noted in the fractures of the right fifth metatarsal neck, proximal phalanges of digits 3 through 5, and middle phalanges of the second digit, with unchanged alignment. Reviewed, dictated and finalized at location K. IMPRESSION: Early healing changes noted in the fractures of the right fifth met atarsal neck, proximal phalanges of digits 3 through 5, and middle phalanges of the second digit, with unchanged alignment.
--- NOTE | ~2021-10-29 | XR_ITS ---
XR chest 2V DATE: 10/29/2021 13:56 INDICATION: Multiple left rib fractures following fall TECHNIQUE: 2 views COMPARISON: 09/2021 CTA chest 09/14/2021 PA and lateral chest FINDINGS: Again noted is a linear oblique intra-articular fracture of lateral aspect of left clavicle . There is mild elevation left leaf of the diaphragm. There is mild bibasilar atelectasis. No pneumotho rax is noted. Heart size appears normal. Is aortic ectasia and mild tortuosity. Diffuse osteopenia. Dextro scoliosis and multilevel degenerative disc disease of lumbar spine. Mild bilateral glenohumeral osteoarthritis. IMPRESSION: Mild bibasilar atelectasis, right greater than left Reviewed, dictated and finalized at location A.
== END 2021-10-29 13:17 | disposition home or self-care (01) ==
PROVIDERS: PCP Internal Medicine; Visit Provider Orthopaedic Surgery
DX: S22.42XD Multiple fractures of ribs, left side, subsequent encounter for fracture with routine healing (principal); S42.002D Fracture of unspecified part of left clavicle, subsequent encounter for fracture with routine healing; S92.901D Unspecified fracture of right foot, subsequent encounter for fracture with routine healing; X58.XXXD Exposure to other specified factors, subsequent encounter; J98.11 Atelectasis
CPT/HCPCS: 71046; 73000; 73630

== ENCOUNTER 2021-12-29 14:11 | Outpatient (CLI) | payer BC, SELFPAY ==
[2021-12-29 14:22] LABS: Basophils Absolute Auto 0.1 K/mm3 (0.0-0.1); Eosinophils Absolute Auto 0.3 K/mm3 (0-0.3); Eosinophils Percent Auto 3.5 % (0-4.4); Hematocrit 40.4 % (42.0-52.0); Hemoglobin 13.3 g/dL (14.0-18.0); Immature Granulocyte Absolute 0.03 K/mm3 (0.00-0.031); Immature Granulocyte Percent A 0.4 % (0-0.5); Lymphocytes Absolute Auto 2.12 K/mm3 (0.9-3.2); Lymphocytes Percent Auto 26.8 % (18.3-44.2); Mean Corpuscular HGB Conc 32.9 g/dl (32-36); Mean Corpuscular Volume 94.2 fl (80-100); Mean Platelet Volume 8.4 fl (7.4-10.4); Monocytes Absolute Auto 0.8 K/mm3 (0.1-0.6); Monocytes Percent Auto 9.5 % (2.6-8.5); Neutrophils Absolute Auto 4.7 K/mm3 (1.3-6.7); Neutrophils Percent Auto 58.8 % (45.5-73.1); Platelet Count Result 206 k/mm3 (150-375); Red Blood Count 4.29 M/mm3 (4.6-6.20); Red Cell Distribution Width 13.2 % (11.5-14.5); White Blood Count 7.9 K/mm3 (4.5-10.0)
[2021-12-29 14:37] LABS: Alanine Aminotransferase 16 U/L (6-50); Albumin Level 4.5 g/dL (3.5-5.1); Alkaline Phosphatase 83 U/L (38-126); Anion Gap 7 mmol/L (8-16); Aspartate Amino Transferase 30 U/L (17-59); Bilirubin,Total 0.6 mg/dL (0.2-1.3); Blood Urea Nitrogen 15 mg/dL (9-20); Calcium 9.2 mg/dL (8.4-10.2); Carbon Dioxide 31 mmol/L (22-30); Chloride 92 mmol/L (98-107); Estimated Glomerular Filt Rate > 60; Glucose 123 mg/dL (65-110); Sodium 130 mmol/L (137-145)
[2021-12-29 17:12] LABS: Iron 106 ug/dL (49-181)
[2021-12-29 17:23] LABS: Percent Iron Saturation 34 % (20-50)
== END 2021-12-29 14:12 | disposition home or self-care (01) ==
LOC: ANHLAB 14:13
PROVIDERS: PCP Internal Medicine; Visit Provider Clinical Nurse Specialist
DX: D50.9 Iron deficiency anemia, unspecified (principal); E87.1 Hypo-osmolality and hyponatremia
CPT/HCPCS: 36415; 80053; 82728; 83540; 83550; 85025

== ENCOUNTER 2022-03-31 11:50 | Outpatient (CLI) | payer BC, SELFPAY ==
[2022-03-31 12:31] LABS: Anion Gap 8 mmol/L (8-16); Blood Urea Nitrogen 21 mg/dL (9-20); Calcium 9.2 mg/dL (8.4-10.2); Carbon Dioxide 30 mmol/L (22-30); Chloride 92 mmol/L (98-107); Estimated Glomerular Filt Rate > 60; Glucose 106 mg/dL (65-110); Potassium 4.1 mmol/L (3.4-5.0); Sodium 130 mmol/L (137-145)
== END 2022-03-31 11:51 | disposition home or self-care (01) ==
PROVIDERS: PCP Internal Medicine; Visit Provider Clinical Nurse Specialist
DX: E87.1 Hypo-osmolality and hyponatremia (principal)
CPT/HCPCS: 36415; 80048

== ENCOUNTER 2022-08-26 15:40 | Outpatient (CLI) | payer BC, SELFPAY ==
[2022-08-26 16:12] LABS: Anion Gap 7 mmol/L (8-16); Blood Urea Nitrogen 17 mg/dL (9-20); Carbon Dioxide 28 mmol/L (22-30); Chloride 96 mmol/L (98-107); Estimated Glomerular Filt Rate > 60; Glucose 99 mg/dL (65-110); Potassium 4.3 mmol/L (3.4-5.0); Sodium 131 mmol/L (137-145)
== END 2022-08-26 15:41 | disposition home or self-care (01) ==
LOC: ANHLAB 15:41
PROVIDERS: PCP Internal Medicine; Visit Provider Clinical Nurse Specialist
DX: E87.1 Hypo-osmolality and hyponatremia (principal)
CPT/HCPCS: 36415; 80048

== ENCOUNTER → 2022-11-12 13:37 | Outpatient (CLI) | payer BC, SELFPAY ==
--- NOTE | ~2022-11-12 | XR_ITS ---
Right foot Technique: AP, oblique, and lateral views were obtained. Clinical History: Pain COMPARISON: 11/28/2021 Findings: No acute fracture or dislocation is seen. Osseous alignment is stable from prior exam, with severe pes planus advanced degenerative change at the talonavicular articulation. Soft tissues are u nremarkable. Impression: No acute fracture identified. stable osseous alignment with severe pes planus and degenerative change of the talonavicular articula tion. Reviewed, dictated and finalized at location M. Impression: No acute fracture identified. stable osseous alignment with severe pes planus and degenerative change of the talonavicular articulation.
== END ==
PROVIDERS: PCP Clinical Nurse Specialist; Visit Provider Clinical Nurse Specialist
DX: M79.671 Pain in right foot (principal); M21.41 Flat foot [pes planus] (acquired), right foot
CPT/HCPCS: 73630

== ENCOUNTER 2023-04-22 11:00 | Outpatient (RCR) | payer BC, SELFPAY ==
--- NOTE | 2023-03-26 13:47 | PTOPEVAL1 ---
Assessment and note entered by Corby Galvan, PT Evaluation Information Assessment Status Evaluation Diagnosis Weakness, repeated falls, Unsteady gait Onset September 2022 Subjective Information Reports that he feels he is getting increased weakness and stability issues in his legs. He feels that at time he is top heavy. He has very flat feet and needs to wear orthotics for stability. He wears high top shoes to prevent from ankle rollover and he is having a lot of trouble finding shoes to replace them. Wears a size 14. He has a lot of trouble with stairs and has them in his house. Reported Pain Level Pain Score 0: Self Report Assessment PT Clinical Summary Patient presents as high fall risk with notable bettie hip weakness and gait deficits. He will benefit from skilled therapy for hip strength improvement , stair training, vestibular training, and proprioceptive practice to improve safety and mobility. Plan of Care Interventions Gait Training,Manual Therapy,Neuro Re-education, Therapeutic Activities,Therapeutic Exercise PT Services Indicated Yes Treatment Frequency and 2x/week for 4 weeks Duration These treatments will address the objective and functional deficits as defined above. The patient will be advanced safely and appropriately in order for the patient to progress towards his/her prior level of function. Additional exercises will be introduced and as well as a comprehensive home exercise program upon discharge, if needed, ?to ensure carryover of functional gains achieved in the clinic. This treatment plan has been reviewed and agreement upon by the patient.
--- NOTE | 2023-04-22 12:21 | PTOPPROG ---
Assessment and note entered by Corby Galvan, PT Evaluation Information Assessment Status Progress Diagnosis Weakness, repeated falls, Unsteady gait Onset September 2022 Subjective Information Reports that he believes that he found a pair of shoes that could help as he has not had proper footwear for quite a while. Feels he is stronger overall but still at times unsteady. Feels he could use more endurance for balance safety. He still relies heavily on his arms hitchcock chair rise and stair navigation. Proprioceptive and vestibular activity remain fairly difficult for him. Assessment PT Clinical Summary We have shown strength and balance improvement, however is still showing weakness in hip clearance and lateral stability. We have emphasized balance and stability in his treatments and I feel he is much improved over initial evaluation. He will be vacationing in [place] for 2 weeks and will be a good time to assess his progress and need for continuity. Will continue to benefit from skilled therapy to address senior care goals that he is still short of. Plan of Care Interventions Gait Training,Manual Therapy,Neuro Re-education, Therapeutic Activities,Therapeutic Exercise PT Services Indicated Yes Treatment Frequency and 2x/week for 4 weeks following return from vacation Duration . These treatments will address the objective and functional deficits as defined above. The patient will be advanced safely and appropriately in order for the patient to progress towards his/her prior level of function. Additional exercises will be introduced and as well as a comprehensive home exercise program upon discharge, if needed, ?to ensure carryover of functional gains achieved in the clinic. This treatment plan has been reviewed and agreement upon by the patient.
--- NOTE | 2023-04-22 12:22 | OPREHPOC ---
Outpatient Therapy Plan of Care This is a Multidisciplinary Plan of Care that may contain components documented by all disciplines (PT, OT, and ST.) PT Problem 1 PT Problem #1 Knowledge Deficit PT Goal 1 Goal Independent with HEP Target Visit 4 Progress Met PT Problem 2 PT Problem #2 Impaired Strength PT Goal 1 Goal Improve bettie hip flexion strength to 4/5 to improve foot clearance with gait Target Visit 8 Progress Partially Met Comment Improved but still lacking PT Goal 2 Goal Improve bettie hip abduction strength to 4/5 to improve lateral stability with gait and transfers Target Visit 8 Progress Partially Met Comment Improved but still lacking goal status. PT Problem 3 PT Problem #3 Impaired Balance PT Goal 1 Goal Demonstrate 5 point improvement in Tinetti score indicating reduced gross fall risk Target Visit 8 Progress Partially Met Comment Improved but not met. Still more room for improvement. PT Problem 4 PT Problem #4 Impaired Gait PT Goal 1 Goal Ambulate with absence of R sided Trendelenburg indicating improved core stability with locomotion Target Visit 8 Progress Partially Met
--- NOTE | 2023-05-12 11:49 | PCPTNOTE ---
Patient called & cancelled all scheduled appointments due to not having the correct shoe for therapy. He will begin again after the new year with the correct shoes. Physical therapist informed.
--- NOTE | 2023-05-12 16:28 | PTOPDC ---
Assessment and note entered by Corby Galvan, PT Evaluation Information Assessment Status Discharge - Pt Not Present Diagnosis Weakness, repeated falls, Unsteady gait Onset September 2022 Subjective Information Patient called reporting that he would like to hold off on therapy until next year. He has been having trouble with his feet and finding proper footwear. Plans to continue HEP. Assessment PT Clinical Summary Patient to be discharged at this time per request. Please refer to last treatment note for discharge status. Plan of Care PT Services Indicated Yes
== END 2023-05-13 09:13 | disposition home or self-care (01) ==
LOC: ANHPT 11:00
PROVIDERS: PCP Clinical Nurse Specialist; Visit Provider Clinical Nurse Specialist
DX: R29.898 Other symptoms and signs involving the musculoskeletal system (principal); R29.6 Repeated falls; R53.1 Weakness
CPT/HCPCS: 97110; 97112; 97161; 97530

== ENCOUNTER 2023-06-14 14:30 | Outpatient (CLI) | payer BC, SELFPAY ==
[2023-06-14 15:24] LABS: Basophils Absolute Auto 0.1 K/mm3 (0.0-0.1); Eosinophils Absolute Auto 0.2 K/mm3 (0-0.3); Eosinophils Percent Auto 2.2 % (0-4.4); Hematocrit 39.6 % (42.0-52.0); Hemoglobin 13.3 g/dL (14.0-18.0); Immature Granulocyte Absolute 0.03 K/mm3 (0.00-0.031); Immature Granulocyte Percent A 0.4 % (0-0.5); Lymphocytes Percent Auto 23.7 % (18.3-44.2); Mean Corpuscular HGB Conc 33.6 g/dl (32-36); Mean Corpuscular Hemoglobin 31.7 pg (26-34); Mean Corpuscular Volume 94.5 fl (80-100); Mean Platelet Volume 9.2 fl (7.4-10.4); Monocytes Absolute Auto 0.7 K/mm3 (0.1-0.6); Monocytes Percent Auto 10.2 % (2.6-8.5); Neutrophils Absolute Auto 4.5 K/mm3 (1.3-6.7); Neutrophils Percent Auto 62.5 % (45.5-73.1); Platelet Count Result 221 k/mm3 (150-375); Red Blood Count 4.19 M/mm3 (4.6-6.20); Red Cell Distribution Width 13.4 % (11.5-14.5); White Blood Count 7.2 K/mm3 (4.5-10.0)
[2023-06-14 15:34] LABS: Alanine Aminotransferase 17 U/L (6-50); Albumin Level 4.2 g/dL (3.5-5.1); Alkaline Phosphatase 66 U/L (38-126); Anion Gap 5 mmol/L (8-16); Aspartate Amino Transferase 29 U/L (17-59); Bilirubin,Total 0.8 mg/dL (0.2-1.3); Blood Urea Nitrogen 20 mg/dL (9-20); Calcium 9.5 mg/dL (8.4-10.2); Carbon Dioxide 33 mmol/L (22-30); Chloride 97 mmol/L (98-107); Cholesterol 161 mg/dL (0-200); Estimated Glomerular Filt Rate > 60; Glucose 109 mg/dL (65-110); HDL Direct 75 mg/dL; Sodium 135 mmol/L (137-145); Triglycerides 103 mg/dL (<150)
[2023-06-14 15:46] LABS: LDL Cholesterol Direct 67 mg/dL
== END 2023-06-14 14:31 | disposition home or self-care (01) ==
PROVIDERS: PCP Clinical Nurse Specialist; Visit Provider Clinical Nurse Specialist
DX: Z13.220 Encounter for screening for lipoid disorders (principal); E87.1 Hypo-osmolality and hyponatremia
CPT/HCPCS: 36415; 80053; 80061; 85025

== ENCOUNTER 2023-11-07 13:27 | Emergency (ER) | payer BC, SELFPAY ==
[2023-11-07] VITALS (29 sets, daily range): BP systolic 114–133; BP diastolic 70–90; PULSE 88–137; RESP 15–31; TEMP 36.8; O2SAT 94–99
--- NOTE | ~2023-11-07 | CT_ITS ---
EXAMINATION: CT chest abdomen pelvis w con DATE: 11/07/2023 15:54 INDICATION: Trauma. TECHNIQUE: Computed tomography (CT) of the chest, abdomen, and pelvis was performed without intraveno us contrast. Automated exposure control and iterative reconstruction technique were employed. The dos e-length product was 1118.30 mGy-cm. COMPARISON: CT abdomen and pelvis 03/11/2015, chest CT 09/21/2021 FINDINGS: CHEST CT: The lungs demonstrate mild atelectasis. There is chronic septal thickening in the inferior lungs, con sistent with chronic interstitial lung disease. No pleural effusion. The heart size is normal. No per icardial effusion. There is mild bilateral gynecomastia. There is severe thoracic spondylosis. There is a comminuted fracture of left second rib. ABDOMEN/PELVIS CT: There is a 9 mm cyst in the liver. The gallbladder, spleen, pancreas, adrenal glands are normal. Ther e is cortical thinning of the kidneys. There are cysts in the kidneys measuring up to 4 mm on the rig ht. The bladder is distended. There is diverticulosis of the colon without evidence of diverticulitis . The appendix is not visualized. There are no pathologically enlarged lymph nodes. There is no free intraperitoneal fluid. There are changes of right inguinal hernia repair. There is lumbar levoscolios is and severe spondylosis. IMPRESSION: 1. Comminuted fracture of left second rib. Reviewed, dictated and finalized at location E.
--- NOTE | ~2023-11-07 | CT_ITS ---
EXAMINATION: CT brain wo con DATE: 11/07/2023 15:53 INDICATION: Head injury. TECHNIQUE: Computed tomography (CT) of the head was performed without intravenous contrast. The mA wa s adjusted according to patient size. Iterative reconstruction technique was employed. The dose-lengt h product was 605.33 mGy-cm. COMPARISON: Head CT 09/21/2021 FINDINGS: There are scattered areas of low attenuation in the cerebral white matter, which is within normal limits for the patient's age. There is no intracranial hemorrhage, acute infarction, or abnor mal intracranial mass lesion. The ventricles are normal in size. There is mild mucosal thickening in the paranasal sinuses. The mastoid air cells are normal. There are likely changes of ocular lens repl acement surgeries. There is frontal scalp soft tissue swelling. IMPRESSION: 1. Normal aging brain. Reviewed, dictated and finalized at location E. IMPRESSION: 1. Normal aging brain.
--- NOTE | ~2023-11-07 | XR_ITS ---
EXAMINATION: XR hand LT min 3V DATE: 11/07/2023 14:50 INDICATION: Left hand injury. TECHNIQUE: 3 views of left hand were obtained. COMPARISON: Left hand radiographs 11/01/2023 FINDINGS: Scapholunate dissociation is noted. There is dorsal tilt of lunate. There is proximal migra tion of capitate. There is severe osteoarthritis of radioscaphoid joint with bone volume loss of radi us. There is severe osteoarthritis of lunate-capitate joint, moderate osteoarthritis of triscaphe tres nt, and severe osteoarthritis of first carpometacarpal joint. There is an old healed fracture of neck of fifth metacarpal. There is hyperextension of first metacarpophalangeal joint. IMPRESSION: 1. 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 Reviewed, dictated and finalized at location E. IMPRESSION: 1. 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
--- NOTE | ~2023-11-07 | XR_ITS ---
EXAMINATION: XR hand RT min 3V DATE: 11/07/2023 14:50 INDICATION: Right hand injury. TECHNIQUE: 3 views of right hand were obtained. COMPARISON: None. FINDINGS: Scapholunate dissociation is noted. No acute fracture. There is proximal migration of capit ate between scaphoid and lunate. There is severe osteoarthritis of radioscaphoid joint with bone volu me loss of distal radius. There is severe osteoarthritis of lunate-capitate joint and lunate-hamate j oint. There is moderate osteoarthritis of triscaphe joint and severe osteoarthritis of first carpomet acarpal joint. There is mild osteoarthritis of second and third distal interphalangeal joints and fir st metacarpophalangeal joint. IMPRESSION: 1. 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 Reviewed, dictated and finalized at location E. IMPRESSION: 1. 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
--- NOTE | ~2023-11-07 | CT_ITS ---
EXAMINATION: CT facial & cervical spine wo DATE: 11/07/2023 15:53 INDICATION: Head injury. TECHNIQUE: Computed tomography (CT) of the maxillofacial region and cervical spine was performed with out intravenous contrast. Automated exposure control and iterative reconstruction technique were empl oyed. The dose-length product was 199.55 mGy-cm. COMPARISON: None FINDINGS: MAXILLOFACIAL CT: There is frontal scalp soft tissue swelling. There are likely changes of ocular lens replacement surg eries. There is leftward deviation of the nasal septum. There are fractures of the nasal bones. There is mucosal thickening in the paranasal sinuses. CERVICAL SPINE CT: There is 2 mm anterolisthesis of C4 on C5 and C7 on T1. Vertebral body heights are normal. There is s everely decreased disc height from C2-C3 through C4-C5, moderately decreased disc height at C5-C6, an d severely decreased disc height at C6-C7 and C7-C8. There is severe osteoarthritis of the C1-C2 face t joints and anterior atlantoaxial joint. The following disc levels are specifically discussed: C2-C3: There is moderate bilateral uncovertebral joint osteoarthritis. There is severe bilateral face t joint osteoarthritis. There is mild left neural foraminal stenosis. There is mild central canal raad nosis. C3-C4: There is severe bilateral uncovertebral joint osteoarthritis. There is severe bilateral facet joint osteoarthritis. There is moderate right and severe left neural foraminal stenosis. There is mil d central canal stenosis. C4-C5: There is severe bilateral uncovertebral joint osteoarthritis. There is severe bilateral facet joint osteoarthritis. There is moderate bilateral neural foraminal stenosis. There is moderate centra l canal stenosis. C5-C6: There is moderate right and severe left uncovertebral joint osteoarthritis. There is severe bi lateral facet joint osteoarthritis. There is moderate right and mild left neural foraminal stenosis. There is mild central canal stenosis. C6-C7: There is moderate right and severe left uncovertebral joint osteoarthritis. There is severe bi lateral facet joint osteoarthritis. There is mild bilateral neural foraminal stenosis. There is mild central canal stenosis. C7-T1: There is moderate bilateral uncovertebral joint osteoarthritis. There is severe bilateral face t joint osteoarthritis. There is mild bilateral neural foraminal stenosis. There is mild central negin l stenosis. IMPRESSION: 1. Fractures of the nasal bones. 2. Severe cervical spondylosis. Reviewed, dictated and finalized at location E.
--- NOTE | 2023-11-07 14:14 | ECG_ITS ---
Test Date: 2023-11-07 14:21:27 Measurements Intervals [place] Rate: 93 P: 34 MT: 214 QRS: -19 QRSD: 99 T: 31 QT: 343 QTc: 428 Interpretive Statements SINUS RHYTHM WITH FIRST DEGREE AV BLOCK WITH FREQUENT VENTRICULAR PREMATURE COMPLEXES IN A BIGEMINAL PATTERN CONSIDER PREVIOUS INFERIOR INFARCTION ABNORMAL ECG No previous ECG available for comparison Electronically Signed On 11-08-2023 07:16:48 CDT by Lon Vivar M.D.
--- NOTE | 2023-11-07 14:30 | ED.FALL ---
HPI - Fall General Chief Complaint: Fall Stated Complaint: glf Time Seen by Provider: 11/07/23 13:59 History of Present Illness HPI Narrative: 82-year-old male presents to the emergency department for evaluation for having a ground level fall. Patient states he was leaving a restaurant and he was in between the torsed exit when he tripped over a rug causing him to fall forward. Patient landed on his knees hands and did strike his face on the ground. Patient denies any loss of consciousness. Patient does have abrasion to face hand hands Related Data Home Medications Medication Instructions Recorded Confirmed aspirin 81 mg chewable tablet See Rx Instructions .Route .COMPLEX 07/26/19 01/01/23 calcium carbonate 600 mg-vitamin 1 cap PO BID 07/26/19 01/01/23 D3 12.5 mcg (500 unit) capsule (Calcium 600 with Vitamin D3) fexofenadine 180 mg tablet 180 mg PO DAILY 07/26/19 01/01/23 fluticasone propionate 50 2 spray intranasal DAILY 07/26/19 01/01/23 mcg/actuation nasal spray,suspension (Flonase Allergy Relief) multivitamin 1 tablet PO DAILY 07/26/19 01/01/23 saw palmetto 160 mg capsule 160 mg PO BID 07/26/19 01/01/23 selenium 200 mcg capsule 200 mcg PO DAILY 07/26/19 01/01/23 Lactobacills gasseri-Bifidobac 1 cap PO DAILY 09/25/21 01/01/23 bifidum,longum 1.5 billion cell capsule (VHT) coffee extract 100 mg-phosphatidyl 1 cap PO DAILY 09/25/21 01/01/23 serine 100 mg capsule (Neuriva Original) simethicone 80 mg chewable tablet 80 mg PO HS 09/25/21 01/01/23 urea 40 % topical cream 1 applic topical BID 11/01/23 vit C 250 mg-E 90 mg-zinc 40 1 tablet PO QAM AND QPM 11/01/23 mg-copper 1 [id number] chew tablet (PreserVision AREDS-2) Allergies Allergy/AdvReac Type Severity Reaction Status Date / Time Horse/Equine Containing Allergy Unknown Hives Verified 11/01/23 14:00 Products Review of Systems Review of Systems: All systems reviewed & are unremarkable except as noted in HPI and below PMFSH Past Medical History Medical History Allergies Anemia Cervical spinal cord compression Chicken pox Chronic acquired lymphedema Diverticulosis Heartburn History of GI bleed History of revision of total replacement of left knee joint Hospital discharge follow-up Measles Mumps Osteoarthritis Thoracic spondylosis with cord compression Surgical History Surgical History History of carpal tunnel surgery bilateral History of hernia repair 1989 History of right knee joint replacement History of skin surgery basal cell carcinoma removal of left ear Family History Family History Father Myocardial infarction Mother Colon perforation Social History Social History (Updated 11/01/23 @ 14:04 by Sharon García CMA) Social History: The patient is and lives with his . The patient has 2 children. The patient is a lifelong nonsmoker does not use any alcohol marijuana or illicit drugs. 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 The patient is retired Code status full code Smoking status: Never smoker Alcohol intake: current Alcohol use details: rarely Substance use: never Substance use type: does not use Do You Feel Safe in your Home?: Yes Lack of Transportation: No Lack of Food: Never True Current Housing: I Have Housing Concerned About Future Housing: No Difficulty Paying Gas/Electric Bills: No Difficulty Paying for Meds: No Currently Unemployed: No Education: Bachelor's Degree Difficulty w/ Childcare or Family Care: No Living arrangements: with family Occupation/Education: retired Spiritual care concerns: No Exam Narrative: APPEARANCE: Well appearing, no pain, no distress, well-nourished. HEAD: normocephalic, atrau
[2023-11-07 15:59] LABS: Estimated CRCL calculation 60 ml/min; Estimated Glomerular Filt Rate > 60
--- NOTE | 2023-11-07 18:15 | PC.NURSE ---
Pt wounds dressed on left hand with steri strips and kerlex gauze. patient head lac has been cleansed and antibiotic ointment applied.
== END 2023-11-07 18:22 | disposition home or self-care (01) ==
PROVIDERS: Emergency Provider Emergency Medicine; PCP Clinical Nurse Specialist
DX: S02.2XXA Fracture of nasal bones, initial encounter for closed fracture (principal); S22.32XA Fracture of one rib, left side, initial encounter for closed fracture; S00.81XA Abrasion of other part of head, initial encounter; I89.0 Lymphedema, not elsewhere classified; M47.14 Other spondylosis with myelopathy, thoracic region; M47.812 Spondylosis without myelopathy or radiculopathy, cervical region; Z96.651 Presence of right artificial knee joint; Z85.828 Personal history of other malignant neoplasm of skin; Z86.2 Personal history of diseases of the blood and blood-forming organs and certain disorders involving the immune mechanism; Z79.899 Other long term (current) drug therapy; Z79.82 Long term (current) use of aspirin; M47.12 Other spondylosis with myelopathy, cervical region; M19.042 Primary osteoarthritis, left hand; M19.041 Primary osteoarthritis, right hand; I44.0 Atrioventricular block, first degree; R00.8 Other abnormalities of heart beat; W18.09XA Striking against other object with subsequent fall, initial encounter
CPT/HCPCS: 70450; 70486; 71260; 72125; 73130; 74177; 93005; 99284; Q9967

== ENCOUNTER 2024-03-09 16:02 | Emergency (ER) | payer BC, SELFPAY ==
[2024-03-09 16:17] VITALS: BP 129/89; PULSE 92; RESP 16; TEMP 36.7; O2SAT 98
--- NOTE | 2024-03-09 16:50 | ED_ITS ---
HPI - Skin/Abscess/Foreign Bdy General Chief complaint: Skin/Abscess/Foreign Body Stated complaint: red itchy spots Time Seen by Provider: 03/09/24 16:38 Source: patient and RN notes reviewed Mode of arrival: ambulatory Limitations: no limitations History of Present Illness HPI narrative: Patient presents today complaining of reddened and she bumps to his arms and right ankle and foot, left cheek and neck and posterior scalp. Symptoms began on 02/28/2024 and new bumps have been developing ever since. Symptoms started while on vacation in [place]. developed similar symptoms and was seen at Urgent Care yesterday in [place]. No specific diagnosis was made patient was treated with a steroid injection as well as prescriptions for triamcinolone, Zyrtec, and Pepcid. Related Data Home Medications Medication Instructions Recorded Confirmed aspirin 81 mg chewable tablet See Rx Instructions .Route .COMPLEX 07/26/19 03/09/24 calcium 600 mg (as 1 cap PO BID 07/26/19 03/09/24 carbonate)-vitamin D3 12.5 mcg (500 unit) capsule (Calcium with Vit D3) fexofenadine 180 mg tablet 180 mg PO DAILY 07/26/19 03/09/24 fluticasone propionate 50 2 spray intranasal DAILY 07/26/19 03/09/24 mcg/actuation nasal spray,suspension (Flonase Allergy Relief) multivitamin 1 tablet PO DAILY 07/26/19 03/09/24 saw palmetto 160 mg capsule 160 mg PO BID 07/26/19 03/09/24 selenium 200 mcg capsule 200 mcg PO DAILY 07/26/19 03/09/24 Lactobacills gasseri-Bifidobac 1 cap PO DAILY 09/25/21 03/09/24 bifidum,longum 1.5 billion cell capsule (web care [employer]) coffee extract 100 mg-phosphatidyl 1 cap PO DAILY 09/25/21 03/09/24 serine 100 mg capsule (Neuriva Original) simethicone 80 mg chewable tablet 80 mg PO HS 09/25/21 03/09/24 vit C 250 mg-E 90 mg-zinc 40 1 tablet PO QAM AND QPM 11/01/23 03/09/24 mg-copper 1 lo-priikj-htqujq chew tablet (PreserVision AREDS-2) Allergies Allergy/AdvReac Type Severity Reaction Status Date / Time Horse/Equine Containing Allergy Unknown Hives Verified 01/12/24 14:57 Products Review of Systems Review of Systems: CONSTITUTIONAL: Denies body aches, fever, chills, or sweats. EYES: Denies visual changes, redness, or discharge. ENT: Denies rhinorrhea, congestion, sore throat, or otalgia. CARDIOVASCULAR: Denies chest pain, palpitations, or edema. RESPIRATORY: Denies cough or dyspnea. GASTROINTESTINAL: Denies abdominal pain, nausea, vomiting, or diarrhea. GENITOURINARY: Denies dysuria or hematuria. SKIN: Pruritic rash MUSCULOSKELETAL: Denies back pain, joint pain, or myalgia. NEUROLOGIC: Denies headache, numbness, tingling, or weakness. PSYCH: Denies depression or anxiety. PENDING SALE TO [facility] Past Medical History Medical History Allergies Anemia Cervical spinal cord compression Chicken pox Chronic acquired lymphedema Diverticulosis Heartburn History of GI bleed History of revision of total replacement of left knee joint Hospital discharge follow-up Measles Mumps Osteoarthritis Thoracic spondylosis with cord compression Surgical History Surgical History History of carpal tunnel surgery bilateral History of hernia repair 1989 History of right knee joint replacement History of skin surgery basal cell carcinoma removal of left ear Family History Family History Father Myocardial infarction Mother Colon perforation Social History Social History Social History: The patient is and lives with his . The patient has 2 children. The patient is a lifelong nonsmoker does not use any alcohol marijuana or illicit drugs. 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 The patient is retired Code status full code Smoking status: Never smoker Second hand tobacco smoke exposure: No Alcohol intake: current Alcohol use details: rarely Substance use: never Substance use type: does not use Do You Feel Safe in your Home?: Yes Lack of Transportation: No Lack of Food: Never True Current Housing: I Have Housing Concerned About Future Housing: Decline to Answer Difficulty Paying Gas/Electric Bills: Decline to Answer Difficulty Paying for Meds: Decline to Answer Currently Unemployed: Decline to Answer Education: Decline to Answer Difficulty w/ Childcare or Family Care: Decline to Answer Living arrangements: with family Occupation/Education: retired 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 Please see nursing chart for further information. There is no relevant family history pertinent to the presenting complaint Exam Narrative: GENERAL: Well-appearing, well-nourished, and in no acute distress. HEAD: Normocephalic, atraumatic. EYES: EOMI. No redness or drainage. Conjunctivae normal. ENT: Mucous membranes pink and moist. NECK: Normal AROM. CHEST: No respiratory distress. EXTREMITIES: Normal range of motion. No edema. SKIN: Warm, dry Capillary refill normal. Normal skin turgor. Large erythematous nodules over the bilateral arms, left cheek, posterior neck and scalp, and right medial ankle and foot. No induration, fluctuance, drainage. NEURO: No focal deficits. Alert and oriented x3. Gait steady. PSYCH: Normal affect. No signs of depression or anxiety. Course Course Level of Care: Express Care Visit Vital Signs Vital signs: Vital Signs Temperature 98.0 F 03/09/24 16:17 Pulse Rate 92 03/09/24 16:17 Respiratory Rate 16 03/09/24 16:17 Blood Pressure 129/89 03/09/24 16:17 Pulse Oximetry 98 03/09/24 16:17 Oxygen Delivery Room Air 03/09/24 16:17 Temperature 98.0 F 03/09/24 16:17 Pulse Rate 92 03/09/24 16:17 Respiratory Rate 16 03/09/24 16:17 Blood Pressure 129/89 03/09/24 16:17 Pulse Oximetry 98 03/09/24 16:17 Oxygen Delivery Room Air 03/09/24 16:17 Reviewed MDM - Skin/Abscess/Foreign Bdy MDM Narrative Medical decision making narrative: Patient was given an IM injection of Solu-Medrol for his itching, as he stated this significantly helped his 's itching and redness within a couple of hours. He is given a prescription for triamcinolone cream and Pepcid. Rash seem consistent with insect bites, though none seem to be infected at this time. Urged to follow-up with PCP if symptoms persist. Differential Diagnosis Differential diagnosis: Likely viral exanthem, dermatophytosis, urticaria, cellulitis, insect bites and contact dermatitis Critical Care Time Critical Care Time Critical Care Time: No Discharge Plan Discharge Clinical Impression: Allergic reaction to insect bite Patient Disposition: Home, Self-Care Condition: Stable Instructions: Insect Bite or Sting (ED) Additional Instructions: Please use the triamcinolone cream and Pepcid as directed. Continue your fexofenadine daily. Follow-up with your PCP with any additional concerns. Your blood pressure was elevated above 120/80 today at Urgent Care. This puts you above the threshold for follow up. Please schedule a followup visit with your personal physician as soon as possible, for further evaluation and treatment. Even blood pressure exceeding 120/80 may indicate pre-hypertension. Prescriptions: New triamcinolone acetonide 0.1 % cream 1 applic topical BID Qty: 30 0RF famotidine [Pepcid] 20 mg tablet 20 mg PO BID 5 Days Qty: 10 0RF No Action aspirin 81 mg tablet,chewable See Rx Instructions .ROUTE .COMPLEX Rx Instructions: 81 mg orally 5pm daily calcium carbonate-vitamin D3 [Calcium 600 with Vitamin D3] 600 mg(1,500mg) - 500 unit capsule 1 cap PO BID fexofenadine 180 mg tablet 180 mg PO DAILY fluticasone propionate [Flonase Allergy Relief] 50 mcg/actuation spray,suspension 2 spray NASAL DAILY Rx Instructions: administer into each nostril multivitamin Tablet 1 tablet PO DAILY saw palmetto 160 mg capsule 160 mg PO BID Rx Instructions: give with meal/snack selenium 200 mcg capsule 200 mcg PO DAILY PreserVision AREDS-2 250-90-40-1 mg tablet,chewable 1 tablet PO QAM AND QPM web care [employer] 1.5 billion cell Capsule 1 cap PO DAILY Neuriva Original 100-100 mg Capsule 1 cap PO DAILY simethicone 80 mg Tablet,Chewable 80 mg PO HS omeprazole 40 mg capsule,delayed release(DR/EC) 40 mg PO DAILY Qty: 90 3RF fluocinonide 0.05 % cream 1 applic TOPICAL BID Qty: 15 0RF Rx Instructions: Apply thin film to affected area twice a day prn dry skin (DME) Compression stockings See Rx Instructions .Route .MEDSUPPLY Qty: 1 0RF Rx Instructions: 2 pair compression stockings 30-40 pressure. Close toe, knee length. 1 refill. azelastine 137 mcg (0.1 %) aerosol,spray See Rx Instructions .ROUTE .COMPLEX Qty: 90 1RF Dose Instruction: SPRAY 1 SPRAY IN EACH NOSTRIL EVERY 12 HOURS Rx Instructions: SPRAY 1 SPRAY IN EACH NOSTRIL EVERY 12 HOURS Follow-up/Referrals: Mechelle Brown, PATIENT MONITOR-C [Primary Care Provider] - Time of Disposition: 17:24
[2024-03-09] MEDS: methylPREDNISolone SOD SUCC 125 MG VIAL IM (16:55)
== END 2024-03-09 17:35 | disposition home or self-care (01) ==
PROVIDERS: Emergency Provider Nurse Practitioner; PCP Clinical Nurse Specialist
DX: S40.862A Insect bite (nonvenomous) of left upper arm, initial encounter (principal); S40.861A Insect bite (nonvenomous) of right upper arm, initial encounter; S00.86XA Insect bite (nonvenomous) of other part of head, initial encounter; S10.96XA Insect bite of unspecified part of neck, initial encounter; S00.06XA Insect bite (nonvenomous) of scalp, initial encounter; S90.561A Insect bite (nonvenomous), right ankle, initial encounter; S90.861A Insect bite (nonvenomous), right foot, initial encounter; W57.XXXA Bitten or stung by nonvenomous insect and other nonvenomous arthropods, initial encounter; R12 Heartburn; M19.90 Unspecified osteoarthritis, unspecified site; Z96.651 Presence of right artificial knee joint
CPT/HCPCS: 96372; 99213; G0463; J2919

== ENCOUNTER 2024-07-07 12:50 | Outpatient (CLI) | payer BC, SELFPAY ==
--- NOTE | ~2024-07-07 | US_ITS ---
EXAMINATION: US_VDOPREFBI_US DATE: 07/07/2024 14:34 INDICATION: Venous insufficiency, chronic, peripheral. TECHNIQUE: Grayscale ultrasound images without and with compression and Doppler ultrasound images of the bilateral lower extremity veins were obtained. COMPARISON: Ultrasound 03/27/2021 FINDINGS: The visualized portions of right common femoral vein, profunda (deep) femoral vein, femoral vein, pop liteal vein, peroneal veins, and posterior tibial veins are patent. Right greater saphenous vein megan ures 6 mm in the upper thigh, 4 mm in the lower thigh, and 4 mm in the calf without reflux. Right sma ll saphenous vein measures 4 mm in the upper calf and 3 mm in the lower calf without reflux. The visualized portions of left common femoral vein, profunda femoral vein, femoral vein, popliteal v ein, peroneal veins, and posterior tibial veins are patent. Left greater saphenous vein measures 6 mm in the upper thigh, 4 mm in the lower thigh, and 3 mm in the calf without reflux. Left small sapheno us vein measures 4 mm in the upper calf and 4 mm in the lower calf without reflux. IMPRESSION: 1. No reflux. Reviewed, dictated and finalized at location A. STOCK SPECULATOR IMPRESSION: 1. No reflux.
--- OUTSIDE RECORDS SUMMARY | 2024-07-07 12:56 | XMS_ITS | Referral Summary ---
Author Organization [facility] Address [address] [place] [address] Care Team Providers Care Physician Name Role Phone Dar Braga DO Primary Care Provider Source Comments [facility] [facility] [employer]non-owned Affiliates and Associated Physician Practices is amultiple site organization consisting of ambulatory clinics and hospital sitesin [place], [place], [place] and [place]. This disclosure is being madepursuant to the Care Everywhere program and may not contain all information available regarding this patient. Last updated 18.[facility] [employer] [facility] [employer] Allergies Active Allergy Reactions Criticality Noted Date Comments Horse Allergy 12/07/2016 horse serum Medications * Be aware that medications may not be up to date on this document. Alwaysverify current medications with the patient. Medication Sig Dispensed Refills Start Date End Date Status omeprazole (PRILOSEC) 40 MG capsule Take 40 mg by mouth daily before breakfast Active Saw [place] 1000 MG Acti ve fluticasone propionate (FLONASE) 50 MCG/ACT nasal spray A[place] 2 Sprays into each nostril once daily Active azelastine (ASTEPRO) 205.5 MCG/SPRAY nasal spray Avery 2 Sprays into each nostril 2 times daily Active Selenium 100 MCG Active Fexofenadine HCl (TRACI PO) Active Multiple Vitamin (MULTI VITAMIN DAILY PO) Active calcium 200 MG tablet Take 200 mg by mouth once daily Active aspirin (ASPIRIN) 81 MG tablet Take 81 mg by mouth once daily Active fluocinonide (LIDEX) 0.05 % cream Apply 1 Dose to affected area as directed Active Probiotic Product ([employer]) capsule Take 1 capsule by mouth once daily Active Cobalamin Combinations (NEURIVA PLUS) CAPS Take 1 capsule by mouth once daily Active Active Problems No known active problems Social History Tobacco Use Types Packs/Day Years Used Date Smoking Tobacco: Never Smokeless Tobacco: Never Alcohol Use Standard Drinks/Week Comments No 0 (1 standard drink = 0.6 oz pur e alcohol) Sex and Gender Information Value Date Recorded Sex Assigned at Male 10/09/2021 5:25 PM CDT Gender Identity Male 10/09/2021 5:25 PM CDT Sexual Orientation Not on file Last Filed Vital Signs Vital Sign Reading Time Taken Comments Blood Pressure 154/89 07/21/2021 3:49 PM WINDOWS SECURITY ANALYST Pulse 92 07/21/2021 3:49 PM WINDOWS SECURITY ANALYST Temperature 36.3 C (97.3 F) 07/21/2021 3:49 PM WINDOWS SECURITY ANALYST Respiratory Rate 20 07/21/2021 3:49 PM WINDOWS SECURITY ANALYST Oxygen Saturation 100% 06/30/2021 1:47 PM WINDOWS SECURITY ANALYST Inhaled Oxygen Concentration - - Weight 81.6 kg (180 lb) 07/21/2021 3:49 PM WINDOWS SECURITY ANALYST Height 177.8 cm (5' 10 ) 07/21/2021 3:49 PM WINDOWS SECURITY ANALYST Body Mass Index 25.83 07/21/2021 3:49 PM WINDOWS SECURITY ANALYST Functional Status Functional Status Response Date of Assess ment Is person deaf or have serious hearing difficult y? No 12/09/2016 Is person blind or have serious difficulty seein g? No 12/09/2016 Does person have serious dif ficulty walking/climbing stairs? No 12/09/2016 Does person have difficulty dressing/bathing? No 12/09/2016 Does person have difficulty doing errands alone? No 12/09/2016 Cognitive Status Response Date of Assessm ent Does person have difficulty concentrating/remembering/making decisions? No 12/09/2016 Plan of Treatment Not on file Medical Devices Implanted Type Area Nurse Office Device Identifier Shelf Expiration Date Model / Serial / Lot Lens Iol 0 D +23.5 Lanre +3.75 Cyl Bcnvx - [id number] Implanted:Qty: 1 on 12/09/2016 by Jesus Chamorro MD at [facility] Left: [employer] [id number] BI LL ONLY / [id number] / [id number] Care Teams Physician Relationship Specialty Start Date End Date Dar Braga DO PCP - General Internal Medicine 06/26/21
--- OUTSIDE RECORDS SUMMARY | 2024-07-07 12:56 | XMS_ITS | Patient Health Summary ---
Author Organization [facility] Address [address] [place] [address] Care Team Providers Care Automatic Machine Attendant Name Role Phone Dar Braga DO Primary Care Provider [phone] [facility],non-owned Affiliates and Associated Physician Practices is amultiple site organization consisting of ambulatory clinics and hospital sitesin [place], [place], [place] and [place]. This disclosure is being madepursuant to the Care Everywhere program and may not contain all information available regarding this patient. Last updated 18.[facility] Allergies * Horse Allergy( horse serum ) Medications * Be aware that medications may not be up to date on this document. Alwaysverify current medications with the patient. * omeprazole (PRILOSEC) 40 MG capsule Take 40 mg by mouth daily before breakfast * Saw [place] 1000 MG * fluticasone propionate (FLONASE) 50 MCG/ACT nasal spray [place] 2 Sprays into each nostril once daily * azelastine (ASTEPRO) 205.5 MCG/SPRAY nasal spray [place] 2 Sprays into each nostril 2 times daily * Selenium 100 MCG * Fexofenadine HCl (TRACI PO) * Multiple Vitamin (MULTI VITAMIN DAILY PO) * calcium 200 MG tablet Take 200 mg by mouth once daily * aspirin (ASPIRIN) 81 MG tablet Take 81 mg by mouth once daily * fluocinonide (LIDEX) 0.05 % cream Apply 1 Dose to affected area as directed * Probiotic Product ([place]) capsule Take 1 capsule by mouth once daily * Cobalamin Combinations (NEURIVA PLUS) CAPS Take 1 capsule by mouth once daily Active Problems No known active problems Social [...] Comments Blood Pressure 154/89 07/21/2021 3:49 PM SURGICAL CORSETIER Pulse 92 07/21/2021 3:49 PM SURGICAL CORSETIER Temperature 36.3 C (97.3 F) 07/21/2021 3:49 PM SURGICAL CORSETIER Respiratory Rate 20 07/21/2021 3:49 PM SURGICAL CORSETIER Oxygen Saturation 100% 06/30/2021 1:47 PM SURGICAL CORSETIER Inhaled Oxygen Concentration - - Weight 81.6 kg (180 lb) 07/21/2021 3:49 PM SURGICAL CORSETIER Height 177.8 cm (5' 10 ) 07/21/2021 3:49 PM SURGICAL CORSETIER Body Mass Index 25.83 07/21/2021 3:49 PM SURGICAL CORSETIER Medical Devices Implanted Type Area Fried Cake Maker Device Identifier Shelf Expiration Date Model / Serial / Lot Lens Iol 0 D +23.5 Lanre +3.75 Cyl Bcnvx - [id number] Implanted:Qty: 1 on 12/09/2016 by Jesus Chamorro MD at [facility] Left: Eye Surgical Direct [id number] BI LL ONLY / [id number] / [id number] Procedures * MRI THORACIC SPINE WO CONTRAST(Performed 07/12/2021) Performed for Spinal stenosis, unspecified spinal region * MRI LUMBAR SPINE WO CONTRAST(Performed 07/12/2021) Performed for Spinal stenosis, unspecified spinal region * EXTRACTION CATARACT WITH INSERTION LENS(Performed 12/09/2016) Results * MRI THORACIC SPINE WO CONTRAST (07/12/2021 12:50 PM SURGICAL CORSETIER) Anatomical Region Laterality Modality Chest Magnetic Resonan ce 07/14/2021 1:39 PM SURGICAL CORSETIER Impressions 07/14/2021 1:45 PM SURGICAL CORSETIER IMPRESSION: 1.No acute osseous abnormality. Degenerative changes of the discs and endplates, most pronounced at T11-12. 2.Moderate spinal stenosis with cord impingement at T10-11. Mild spinal canal stenosis at T11-12. No significant foraminal stenosis. 3.Limited visualization of the cervical spine on the airfield manager view. Spinal cord compression and edema at C3 and C4 vertebral levels due to degenerative changes. This report was electronically signed by ERNA EDMONDS on 07/14/2021 1:45 PM . Narrative 07/14/2021 1:45 PM SURGICAL CORSETIER MRI of thoracic spine without intravenous contrast INDICATION: M48.00: Spinal stenosis, unspecified spinal region TECHNIQUE: MRI of the thoracic spine was performed without intravenous contrast according to standard protocol. COMPARISON: No prior study is available for comparison. FINDINGS: There is osseous fusion of T12 and L1 vertebral bodies and posterior elements, possibly developmental. The bone marrow signal is unremarkable without aggressive appearing lesions. A large osseous hemangioma is seen in the right aspect of T12 vertebral body. The vertebrae are normal in height Degenerative chronic remodeling of the vertebrae is noted without acute fracture or significant height loss. There is no epidural fluid collection or mass lesion. The spinal cord is normal in morphology and signal intensity without compression. Degenerative changes of the discs and endplates are seen at multiple levels, most pronounced at T11-12. There is moderate spinal canal stenosis at T10-11. There is mild spinal canal stenosis at T11-12. The cervical spine is visualized on the sagittal T2 contents including airfield manager view. There are severe degenerative changes with apparent spinal cord compression and cord edema at C3-C4. Procedure Note Erna Edmonds MD - 07/14/2021 MRI of thoracic spine without intravenous contrast INDICATION: M48.00: Spinal stenosis, unspecified spinal region TECHNIQUE: MRI of the thoracic spine was performed without intravenous contrast according to standard protocol. COMPARISON: No prior study is available for comparison. FINDINGS: There is osseous fusion of T12 and L1 vertebral bodies and posterior elements, possibly developmental. The bone marrow signal is unremarkable without aggressive appearing lesions. A large osseous hemangioma is seen in the right aspect of T12 vertebral body. The vertebrae are normal in height Degenerative chronic remodeling of the vertebrae is noted without acute fracture orsignificant height loss. There is no epidural fluid collection or mass lesion. The spinal cord is normal in morphology and signal intensity without compression. Degenerative changes of the discs and endplates are seen at multiple levels, most pronounced at T11-12. There is moderate spinal canalstenosis at T10-11. There is mild spinal canal stenosis at T11-12. The cervical spine is visualized on the sagittal T2 contents including airfield manager view. There are severe degenerative changes with apparent spinal cord compression and cord edema at C3-C4. IMPRESSION: 1.No acute osseous abnormality. Degenerative changes of the discs and endplates, most pronounced at T11-12. 2.Moderate spinal stenosis with cord impingement at T10-11. Mild spinal canal stenosis at T11-12. No significant foraminal stenosis. 3.Limited visualization of the cervical spine on the airfield manager view. Spinal cord compression and edema at C3 and C4 vertebral levels due to degenerative changes. This report was electronically signed by ERNA EDMONDS on 07/14/2021 1:45PM . Jayme Randall MD MR ORDERABLES * MRI LUMBAR SPINE WO CONTRAST (07/12/2021 12:50 PM SURGICAL CORSETIER) Anatomical Region Laterality Modality Spine Magnetic Resonan ce 07/14/2021 1:26 PM SURGICAL CORSETIER Impressions 07/14/2021 1:38 PM SURGICAL CORSETIER IMPRESSION: 1.Lumbar spine levoscoliosis and exaggerated kyphosis. Chronic bilateral L5 spondylolysis with grade 1 spondylolisthesis. 2.Severe multilevel degenerative changes. Severe spinal canal stenosis at L4-5. Multilevel moderate to severe foraminal stenoses, as described above. 3.Diffuse bladder wall thickening and trabeculation suggesting chronic outlet obstruction. This report was electronically signed by ERNA EDMONDS on 07/14/2021 1:38 PM . Narrative 07/14/2021 1:38 PM SURGICAL CORSETIER MRI of lumbar spine without intravenous contrast INDICATION: M48.00: Spinal stenosis, unspecified spinal region TECHNIQUE: MRI of the lumbar spine was performed without intravenous contrast according to standard protocol. COMPARISON: No prior study is available for comparison. FINDINGS: There is osseous fusion of T12 and L1 vertebral bodies and posterior elements, possibly developmental. The bone marrow signal is unremarkable without aggressive appearing lesions. Degenerative chronic remodeling of the vertebrae is noted without acute fracture or significant height loss. There is no epidural fluid collection or mass lesion. The conus medullaris terminates at upper L1. There is displacement of the conus in the left lateral aspect of the spinal canal with impingement. No edema is noted. There is clumping of the cauda equina at L4-5 due to severe spinal canal stenosis. There is severe levoscoliosis of the lumbar spine. The lumbar lordosis is exaggerated. Multilevel degenerative changes are seen with individual disc level analysis as follows: L1-2: Near-complete loss of disc space height. Slight retrolisthesis of L1. Posterior endplate spurring. Facet degenerative changes. Ligamentum flavum thickening. Mild spinal canal stenosis with compression of the thecal sac in the ventral lateral aspect. Moderate bilateral foraminal stenosis. L2-3: Moderate loss of disc space height. Left facet hypertrophy. Ligamentum flavum thickening. Mild spinal canal stenosis. Severe right foraminal stenosis. L3-4: Moderate loss of disc space height, particularly on the right. No subluxation. Posterior disc bulge. Severe bilateral facet hypertrophy. Mild spinal canal stenosis. Right lateral recess stenosis. Moderate right foraminal stenosis. L4-5: Severe degenerative changes with near complete loss of disc space height and marked endplate spurring posteriorly. Mild facet hypertrophy. Ligamentum flavum thickening. Severe spinal canal stenosis. Severe bilateral foraminal stenosis. L5-S1: Chronic spondylolysis bilaterally. Severe degenerative changes at L5-S1 including near-complete loss of disc space height, endplate subchondral cystic changes, decreased L5 vertebral body height and grade 1 anterolisthesis of L5. There is unroofing of the dorsal disc. Bilateral facet hypertrophy is noted. There is mild to moderate spinal canal stenosis. There is severe bilateral foraminal stenosis. There is diffuse lumbosacral paraspinal muscle atrophy. These is marked distention of the urinary bladder with diffuse bladder wall thickening and trabeculation. Procedure Note Erna Edmonds MD - 07/14/2021 MRI of lumbar spine without intravenous contrast INDICATION: M48.00: Spinal stenosis, unspecified spinal region TECHNIQUE: MRI of the lumbar spine was performed without intravenous contrast according to standard protocol. COMPARISON: No prior study is available for comparison. FINDINGS: There is osseous fusion of T12 and L1 vertebral bodies and posterior elements, possibly developmental. The bone marrow signal is unremarkable without aggressive appearing lesions. Degenerative chronic remodeling of the vertebrae is notedwithout acute fracture or significant height loss. There is no epidural fluid collection or mass lesion. The conus medullaris terminates at upper L1. There is displacement of the conus in the left lateral aspect of the spinal canal with impingement. No edema is noted. There is clumping ofthe cauda equina at L4-5 due to severe spinal canal stenosis. There is severe levoscoliosis of the lumbar spine. The lumbar lordosisis exaggerated. Multilevel degenerative changes are seen with individualdisc level analysis as follows: L1-2: Near-complete loss of disc space height. Slight retrolisthesis of L1. Posterior endplate spurring. Facet degenerative changes. Ligamentum flavum thickening. Mild spinal canal stenosis with compression of the thecal sac in the ventral lateral aspect. Moderate bilateral foraminal stenosis. L2-3: Moderate loss of disc space height. Left facet hypertrophy. Ligamentum flavum thickening. Mild spinal canal stenosis. Severe right foraminal stenosis. L3-4: Moderate loss of disc space height, particularly on the right. No subluxation. Posterior disc bulge. Severe bilateral facet hypertrophy. Mild spinal canal stenosis. Right lateral recess stenosis. Moderateright foraminal stenosis. L4-5: Severe degenerative changes with near complete loss of disc space height and marked endplate spurring posteriorly. Mild facet hypertrophy. Ligamentum flavum thickening. Severe spinal canal stenosis. Severe bilateral foraminal stenosis. L5-S1: Chronic spondylolysis bilaterally. Severe degenerative changes at L5-S1 including near-complete loss of disc space height, endplate subchondral cystic changes, decreased L5 vertebral body height and grade1 anterolisthesis of L5. There is unroofing of the dorsal disc. Bilateral facet hypertrophy is noted. There is mild to moderate spinal canal stenosis. There is severe bilateral foraminal stenosis. There is diffuse lumbosacral paraspinal muscle atrophy. These is marked distention of the urinary bladder with diffuse bladder wall thickening and trabeculation. IMPRESSION: 1.Lumbar spine levoscoliosis and exaggerated kyphosis. Chronic bilateral L5 spondylolysis with grade 1 spondylolisthesis. 2.Severe multilevel degenerative changes. Severe spinal canal stenosisat L4-5. Multilevel moderate to severe foraminal stenoses, as described above. 3.Diffuse bladder wall thickening and trabeculation suggesting chronic outlet obstruction. This report was electronically signed by ERNA EDMONDS on 07/14/2021 1:38PM . Jayme Randall MD MR ORDERABLES Care Teams Automatic Machine Attendant Relationship Specialty Start Date End Date Dar Braga DO PCP - General Internal Medicine 06/26/21
--- OUTSIDE RECORDS SUMMARY | 2024-07-07 12:56 | XMS_ITS | Clinical Summary ---
Author Organization [facility] [employer] Address [address] [place] [address] Care Team Providers Care Photographer Helper Name Role Phone Dar Braga DO Primary Care Provider Source Comments [facility] [employer],non-owned Affiliates and Associated Physician Practices is amultiple site organization consisting of ambulatory clinics and hospital sitesin [place], [place], [place] and [place]. This disclosure is being madepursuant to the Care Everywhere program and may not contain all information available regarding this patient. Last updated 18.[facility] [employer] Allergies Active Allergy Reactions Criticality Noted Date Comments Horse Allergy 12/07/2016 horse serum Medications * Be aware that medications may not be up to date on this document. Alwaysverify current medications with the patient. Medication Sig Dispensed Refills Start Date End Date Status omeprazole (PRILOSEC) 40 MG capsule Take 40 mg by mouth daily before breakfast Active Saw [place] 1000 MG Acti ve fluticasone propionate (FLONASE) 50 MCG/ACT nasal spray [place] 2 Sprays into each nostril once daily Active azelastine (ASTEPRO) 205.5 MCG/SPRAY nasal spray [place] 2 Sprays into each nostril 2 times [...] affected area as directed Active Probiotic Product (Intellikine) capsule Take 1 capsule by mouth once [...] Comments Blood Pressure 154/89 07/21/2021 3:49 PM BARTENDER HELPER Pulse 92 07/21/2021 3:49 PM BARTENDER HELPER Temperature 36.3 C (97.3 F) 07/21/2021 3:49 PM BARTENDER HELPER Respiratory Rate 20 07/21/2021 3:49 PM BARTENDER HELPER Oxygen Saturation 100% 06/30/2021 1:47 PM BARTENDER HELPER Inhaled Oxygen Concentration - - Weight 81.6 kg (180 lb) 07/21/2021 3:49 PM BARTENDER HELPER Height 177.8 cm (5' 10 ) 07/21/2021 3:49 PM BARTENDER HELPER Body Mass Index 25.83 07/21/2021 3:49 PM BARTENDER HELPER Plan of Treatment Health Maintenance Due Date Last Done Comments DTAP/TDAP/TD VACCINES (1 - Tdap) 1960 PNEUMOCOCCAL VACCINE 50+ (1 of 1 - PCV) 11/21/1991 ZOSTER VACCINE (1 of 2) 11/21/1991 Respiratory Syncytial Virus (RSV) Vaccine Pt: or over 60 yrs (1 - 1-dose 75+ series) 2016 COVID-19 VACCINE (2023-2 5 season) 2024 02/14/2021, 08/15/2020, 07/25/2020 INFLUENZA VACCINE (#1) 2024 02/14/2021 DEPRESSION SCREENING 05/17/2024 HEPATITIS B VACCINE Aged Out No longe r eligible based on patient's age to complete this topic HIB VACCINE Aged Out No longer eligi ble based on patient's age to complete this topic HPV VACCINE Aged Out No longer eligi ble based on patient's age to complete this topic MENINGOCOCCAL (Group B) VACCINE Aged Out No longer eligible b ased on patient's age to complete this topic MENINGOCOCCAL VACCINE Aged Out No james elizabeth eligible based on patient's age to complete this topic Medical Devices Implanted Type Area Retail Greeting Card Merchandiser Device Identifier Shelf Expiration Date Model / Serial / Lot Lens Iol 0 D +23.5 Lanre +3.75 Cyl Bcnvx - [id number] Implanted:Qty: 1 on 12/09/2016 by Jesus Chamorro MD at [facility] Left: Eye Surgical Direct [id number] BI LL ONLY / [id number] / [id number] Care Teams Photographer Helper Relationship Specialty Start Date End Date Dar Braga DO PCP - General Internal Medicine 06/26/21
== END 2024-07-07 12:51 | disposition home or self-care (01) ==
LOC: ANHIMG 12:51
PROVIDERS: PCP Internal Medicine; Visit Provider Orthopaedic Surgery
DX: I87.2 Venous insufficiency (chronic) (peripheral) (principal)
CPT/HCPCS: 93970

== ENCOUNTER 2024-08-15 15:56 | Outpatient (CLI) | payer BC, SELFPAY ==
--- NOTE | ~2024-08-15 | US_ITS ---
EXAMINATION: US arterial ankle brachial ind DATE: 08/15/2024 14:54 INDICATION: Peripheral vascular disease TECHNIQUE: Segmental pressures and plethysmographic and Doppler waveforms of the brachial and lower e xtremity arteries were obtained. COMPARISON: None. FINDINGS: Right and left brachial artery pressures of 121 mm Hg and 124 mm Hg, respectively, are concordant (no rmal difference <= 30 mmHg). The right ankle-brachial index (DAVID) is 1.26 (normal >= 0.9-1.0). The right great toe-brachial index (TBI) is 0.49 (normal >= 0.65). Arterial Doppler waveforms are biphasic at the right posterior tibial and triphasic at the right dorsalis pedis arteries, both with normal brisk systolic upstrokes. The left DAVID is 1.25. The left TBI is 0.85. Arterial Doppler waveforms are biphasic with brisk systol ic upstrokes at both left posterior tibial and dorsalis pedis arteries. IMPRESSION: 1. Arterial occlusive disease to the right lower limb with normal right DAVID but mildly decreased righ t TBI. 2. No significant arterial occlusive disease to left lower limb with normal left DAVID and TBI. Reviewed, dictated and finalized at location A. IMPRESSION: 1. Arterial occlusive disease to the right lower limb with normal right DAVID but mildly decreased right TBI. 2. No significant arterial occlusive disease to left lower limb with normal lef t DAVID and TBI.
--- OUTSIDE RECORDS SUMMARY | 2024-08-15 15:28 | XMS_ITS | Clinical Summary ---
Author Organization [facility] [employer] Address [address] [place] [address] Care Team Providers Care Air Conditioning Unit Tester Name Role Phone Dar Braga DO Primary Care Provider Source Comments [facility] [employer],non-owned Affiliates and Associated Physician Practices is amultiple site organization consisting of ambulatory clinics and hospital sitesin [place], [place], [place] and [place]. This disclosure is being madepursuant to the Care Everywhere program and may not contain all information available regarding this patient. Last updated 18.[facility] [employer] Allergies Active Allergy Reactions Criticality Noted Date Comments Horse Allergy 12/07/2016 horse serum Medications * Be aware that medications may not be up to date on this document. Alwaysverify current medications with the patient. Medication Sig Dispensed Refills Start Date End Date Status omeprazole (PRILOSEC) 40 MG capsule Take 40 mg by mouth daily before breakfast Active Saw [place] 1000 MG Acti ve fluticasone propionate (FLONASE) 50 MCG/ACT nasal spray [place] 2 Sprays into each nostril once daily Active azelastine (ASTEPRO) 205.5 MCG/SPRAY nasal spray [place] 2 Sprays into each nostril 2 times [...] affected area as directed Active Probiotic Product (Yatedo) capsule Take 1 capsule by mouth once [...] Comments Blood Pressure 154/89 07/21/2021 3:49 PM PRIVATE BRANCH EXCHANGE REPAIRER Pulse 92 07/21/2021 3:49 PM PRIVATE BRANCH EXCHANGE REPAIRER Temperature 36.3 C (97.3 F) 07/21/2021 3:49 PM PRIVATE BRANCH EXCHANGE REPAIRER Respiratory Rate 20 07/21/2021 3:49 PM PRIVATE BRANCH EXCHANGE REPAIRER Oxygen Saturation 100% 06/30/2021 1:47 PM PRIVATE BRANCH EXCHANGE REPAIRER Inhaled Oxygen Concentration - - Weight 81.6 kg (180 lb) 07/21/2021 3:49 PM PRIVATE BRANCH EXCHANGE REPAIRER Height 177.8 cm (5' 10 ) 07/21/2021 3:49 PM PRIVATE BRANCH EXCHANGE REPAIRER Body Mass Index 25.83 07/21/2021 3:49 PM PRIVATE BRANCH EXCHANGE REPAIRER Plan of Treatment Health Maintenance Due Date [...] complete this topic MENINGOCOCCAL (Group B) VACCINE SHARED DECISION-MAKING Aged Out No longer eligible based on patient's age to complete this topic MENINGOCOCCAL GROUPS A/C/Y/W VACCINE Aged Out No longer eligible b ased on patient's age to complete this topic Medical Devices Implanted Type Area Water Service Dispatcher Device Identifier Shelf Expiration Date Model / Serial / Lot Lens Iol 0 D +23.5 Lanre +3.75 Cyl Bcnvx - [id number] Implanted:Qty: 1 on 12/09/2016 by Jesus Chamorro MD at [facility] Left: Eye Surgical Direct [id number] BI LL ONLY / [id number] / [id number] Care Teams Air Conditioning Unit Tester Relationship Specialty Start Date End Date Dar Braga DO PCP - General Internal Medicine 06/26/21
[2024-08-15 16:55] LABS: Basophils Absolute Auto 0.1 K/mm3 (0.0-0.1); Basophils Percent Auto 1.1 % (0.2-1.2); Eosinophils Absolute Auto 0.2 K/mm3 (0-0.3); Eosinophils Percent Auto 3.9 % (0-4.4); Hematocrit 38.4 % (42.0-52.0); Hemoglobin 12.9 g/dL (14.0-18.0); Immature Granulocyte Absolute 0.03 K/mm3 (0.00-0.031); Immature Granulocyte Percent A 0.5 % (0-0.5); Lymphocytes Absolute Auto 1.78 K/mm3 (0.9-3.2); Lymphocytes Percent Auto 28.6 % (18.3-44.2); Mean Corpuscular HGB Conc 33.6 g/dl (32-36); Mean Corpuscular Volume 95.3 fl (80-100); Mean Platelet Volume 8.7 fl (7.4-10.4); Monocytes Absolute Auto 0.7 K/mm3 (0.1-0.6); Monocytes Percent Auto 11.1 % (2.6-8.5); Neutrophils Absolute Auto 3.4 K/mm3 (1.3-6.7); Neutrophils Percent Auto 54.8 % (45.5-73.1); Platelet Count Result 225 k/mm3 (150-375); Red Blood Count 4.03 M/mm3 (4.6-6.20); Red Cell Distribution Width 13.2 % (11.5-14.5); White Blood Count 6.2 K/mm3 (4.5-10.0)
[2024-08-15 16:56] LABS: Alanine Aminotransferase 17 U/L (6-50); Albumin Level 4.4 g/dL (3.5-5.1); Alkaline Phosphatase 94 U/L (38-126); Anion Gap 9 mmol/L (4-12); Aspartate Amino Transferase 33 U/L (17-59); Bilirubin,Total 0.6 mg/dL (0.2-1.3); Blood Urea Nitrogen 20 mg/dL (9-20); Calcium 9.6 mg/dL (8.4-10.2); Carbon Dioxide 27 mmol/L (22-30); Chloride 95 mmol/L (98-107); Estimated Glomerular Filt Rate > 60; Glucose 109 mg/dL (65-110); Potassium 4.6 mmol/L (3.4-5.0); Sodium 131 mmol/L (137-145)
[2024-08-15 16:57] LABS: Hemoglobin A1C 5.2 % (<5.7)
--- OUTSIDE RECORDS SUMMARY | 2024-08-15 17:18 | XMS_ITS | Clinical Summary ---
Author Organization [facility] [employer] Address [address] [place] [address] Care Team Providers Care Medical Observer Name Role Phone Dar Braga DO Primary Care Provider Source Comments [facility] [employer],non-owned Affiliates and Associated Physician Practices is amultiple site organization consisting of ambulatory clinics and hospital sitesin [place], [place], [place] and [place]. This disclosure is being madepursuant to the Care Everywhere program and may not contain all information available regarding this patient. Last updated 18.[facility] [employer] Allergies Active Allergy Reactions Criticality Noted Date Comments Horse Allergy 12/07/2016 horse serum Medications * Be aware that medications may not be up to date on this document. Alwaysverify current medications with the patient. Medication Sig Dispensed Refills Start Date End Date Status omeprazole (PRILOSEC) 40 MG capsule Take 40 mg by mouth daily before breakfast Active Saw [place] 1000 MG Acti ve fluticasone propionate (FLONASE) 50 MCG/ACT nasal spray [place] 2 Sprays into each nostril once daily Active azelastine (ASTEPRO) 205.5 MCG/SPRAY nasal spray [place] 2 Sprays into each nostril 2 times [...] affected area as directed Active Probiotic Product (Spotie) capsule Take 1 capsule by mouth once [...] Comments Blood Pressure 154/89 07/21/2021 3:49 PM ADJUNCT PROFESSOR OF U.S. HISTORY Pulse 92 07/21/2021 3:49 PM ADJUNCT PROFESSOR OF U.S. HISTORY Temperature 36.3 C (97.3 F) 07/21/2021 3:49 PM ADJUNCT PROFESSOR OF U.S. HISTORY Respiratory Rate 20 07/21/2021 3:49 PM ADJUNCT PROFESSOR OF U.S. HISTORY Oxygen Saturation 100% 06/30/2021 1:47 PM ADJUNCT PROFESSOR OF [employer] HISTORY Inhaled Oxygen Concentration - - Weight 81.6 kg (180 lb) 07/21/2021 3:49 PM ADJUNCT PROFESSOR OF U.S. HISTORY Height 177.8 cm (5' 10 ) 07/21/2021 3:49 PM ADJUNCT PROFESSOR OF U.S. HISTORY Body Mass Index 25.83 07/21/2021 3:49 PM ADJUNCT PROFESSOR OF U.S[employer] HISTORY Plan of Treatment Health Maintenance Due Date [...] this topic Medical Devices Implanted Type Area Carbon Paper Interleafer Device Identifier Shelf Expiration Date Model / Serial / Lot Lens Iol 0 D +23.5 Lanre +3.75 Cyl Bcnvx - [id number] Implanted:Qty: 1 on 12/09/2016 by Jesus Chamorro MD at [facility] Left: Eye Surgical Direct [id number] BI LL ONLY / [id number] / [id number] Care Teams Medical Observer Relationship Specialty Start Date End Date Dar Braga DO PCP - General Internal Medicine 06/26/21
[2024-08-15 17:38] LABS: Vitamin D 25 Hydroxy 34.9 ng/mL
== END 2024-08-15 15:57 | disposition home or self-care (01) ==
PROVIDERS: PCP Internal Medicine; Referring Provider Clinical Nurse Specialist; Visit Provider Orthopaedic Surgery
DX: I73.9 Peripheral vascular disease, unspecified (principal); E87.1 Hypo-osmolality and hyponatremia; D50.9 Iron deficiency anemia, unspecified; R60.0 Localized edema; E55.9 Vitamin D deficiency, unspecified; Z13.220 Encounter for screening for lipoid disorders; I49.3 Ventricular premature depolarization
CPT/HCPCS: 36415; 80053; 82306; 82607; 83036; 84443; 85025; 93922

== ENCOUNTER 2024-08-24 08:24 | Outpatient (CLI) | payer BC, SELFPAY ==
--- NOTE | ~2024-08-24 | MR_ITS ---
EXAMINATION: MR foot RT wo con DATE: 08/24/2024 09:15 INDICATION: Metatarsal stress fracture TECHNIQUE: Magnetic resonance imaging (MRI) of the right fore/mid foot was performed without intraven ous contrast. Sequences included sagittal T1-weighted FSE, sagittal fluid sensitive FSE STIR, coronal PD-weighted FS FSE, coronal T1-weighted FSE, axial PD-weighted FS FSE, and axial PD-weighted FSE. COMPARISON: Right foot radiographs dated 06/14/2024 FINDINGS: Pes planus and hindfoot valgus. Moderate to severe osteoarthritis with degenerative subarticular cyst like changes at the talonavicular and subtalar joints. Additional severe osteoarthritis at the base o f the navicular with the lateral cuneiform and small portion of the cuboid where there is additional mild subarticular cystlike change. Moderate osteoarthritis at the first tarsal metatarsal joint with additional subarticular edema-like and cystlike changes. Mild polyarticular osteoarthritis at multipl e tarsometatarsal, metatarsophalangeal and interphalangeal joints. The degenerative subchondral rosado es. Marrow signal is normal with no fracture, reactive edema to suggest stress reaction or pathologic marrow replacing process. Lisfranc ligament complex and the collateral ligament complex at the metat arsophalangeal and interphalangeal joints are normal. The visualized portion of the flexor and extens or tendons are normal. Mild to moderate fatty atrophy of some of the intrinsic musculature of the sunitha t. Diffuse subcutaneous edema throughout the fore and midfoot. No tenosynovitis, joint effusions or o ther abnormal fluid collections. IMPRESSION: 1. 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 2. No fracture or stress reaction. Reviewed, dictated and finalized at location B. IMPRESSION: 1. Pes planus and hindfoot valgus with moderate to severe polyarticular osteoar thritis in the mid and hindfoot and mild osteoarthritis in the forefoot. 2. No fracture or stress reaction.
== END 2024-08-24 08:25 | disposition home or self-care (01) ==
LOC: MICIMG 08:24
PROVIDERS: PCP Internal Medicine; Visit Provider Orthopaedic Surgery
DX: M84.374A Stress fracture, right foot, initial encounter for fracture (principal); M21.41 Flat foot [pes planus] (acquired), right foot; M19.071 Primary osteoarthritis, right ankle and foot
CPT/HCPCS: 73718